=== PATIENT | female | born 1965 ===

== ENCOUNTER → 2016-10-02 | Outpatient (CLI) | payer BC, OTHER ==
[~2016-10-02] MED LIST: ADVIN25/60 INH; AMLO-114 PO; ATOR-22 PO; GLYB2.5T7 PO; HYDR-2977 PO; HYZ/10015 PO; LIVALO PO; LOSARTAN/HCTZ PO; METF-384 PO; MONT1TAB5 PO; NAPR1TAB9 PO; OLME40TA30 PO; RXC5 PO; TAMO20TA5 PO; VNTHFA/IN INH; [UNRECOGNIZED DRUG - OTHER] INH
== END | disposition home or self-care (01) ==
LOC: C.PATHSPEC 13:25
PROVIDERS: ATTEND Obstetrics & Gynecology
DX: N93.8 Other specified abnormal uterine and vaginal bleeding (principal)

== ENCOUNTER 2017-01-01 09:28 | Inpatient (IN) | payer BC, OTHER ==
[2016-12-08 10:32] VITALS: BMI 27.0
--- NOTE | 2016-12-08 11:07 | PAT Medication Instructions ---
Service Date Dec 08, 2016. Current Home Medication List Albuterol Hfa (Ventolin Hfa), 2-4 PUFFS INH Q4H PRN for RN Amlodipine (Norvasc), 10 MG PO QPM Atorvastatin (Lipitor), 20 MG PO HS Fluticasone Prop/Salmeterol (Advair Diskus 250/50 60 Dose), 1 PUFF INH BID Hydralazine HCl (Hydralazine HCl), 10 MG PO BID Metformin Hcl (Glucophage), 1,000 MG PO BID Montelukast Sodium (Montelukast Sodium), 1 TAB PO QPM Naproxen (Aleve), 220 MG PO PRN Tamoxifen Citrate (Nolvadex), 20 MG PO QAM [Losartan/Hctz], 1 TAB PO QAM Medication Instructions For Your Scheduled Surgery - Check with surgeon/prescribing physician for instructions: Naproxen (Aleve), 220 MG PO PRN Tamoxifen Citrate (Nolvadex), 20 MG PO QAM - Hold the following medications 48 hours prior to surgery: Metformin Hcl (Glucophage), 1,000 MG PO BID - Hold the following medications the morning of surgery: [Losartan/Hctz], 1 TAB PO QAM - Take the following medications the morning of surgery with a sip of water: Hydralazine HCl (Hydralazine HCl), 10 MG PO BID Fluticasone Prop/Salmeterol (Advair Diskus 250/50 60 Dose), 1 PUFF INH BID Albuterol Hfa (Ventolin Hfa), 2-4 PUFFS INH Q4H PRN for RN (if needed) - Take the following medications as scheduled the night before surgery: Montelukast Sodium (Montelukast Sodium), 1 TAB PO QPM Hydralazine HCl (Hydralazine HCl), 10 MG PO BID Fluticasone Prop/Salmeterol (Advair Diskus 250/50 60 Dose), 1 PUFF INH BID Atorvastatin (Lipitor), 20 MG PO HS Amlodipine (Norvasc), 10 MG PO QPM Albuterol Hfa (Ventolin Hfa), 2-4 PUFFS INH Q4H PRN for RN (if needed) If you have any questions please call us at [phone] or [phone] or [phone]
[2016-12-08 11:52] LABS: BASO % 0.6 %; BASO ABS # 0.06 K/uL (0-0.2); COMPLETE YES; EOS % 12.8 %; HEMATOCRIT 36.2 % (37-47); IG% 0.1 %; LYMPH % 43.2 %; LYMPH ABS # 4.02 K/uL (1.2-3.4); MEAN CELL VOLUME 75.3 fL (80-100); MEAN CORPUSCULAR HEMOGLOBIN 23.3 pg (25-34); MEAN CORPUSCULAR HGB CONC 30.9 g/dl (32-36); MEAN PLATELET VOLUME 9.8 fL (7.4-10.4); MONO % 5.7 %; NEUT % 37.6 %; PLATELET COUNT 395 K/uL (130-400); RED BLOOD COUNT 4.81 M/uL (4.2-5.4)
[2016-12-08 12:16] LABS: ESTIMATED AVERAGE GLUCOSE 169 mg/dl; HA1C FLAG Normal (Normal)
[2016-12-08 13:14] LABS: CALCIUM 8.9 mg/dl (8.5-10.1); CREATININE 0.57 mg/dl (0.60-1.20); POTASSIUM 3.3 mmol/L (3.5-5.1)
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
[~2017-01-01] VITALS: Ht 154.9 cm; Wt 66.5 kg
[2017-01-01] VITALS (8 sets, daily range): BP systolic 129–145; BP diastolic 75–86; PULSE 64–99; TEMP 36.8–37.1; O2SAT 96–99; Ht 154.9 cm; Wt 66.5 kg
[~2017-01-01 09:28] MED LIST changes: +CEFAZOLIN 2000 MG/60 ML D5W 50 ML IV SCH; -GLYB2.5T7 PO; -HYDR-2977 PO; +HYDR-4322 PO; -HYZ/10015 PO; +LACTATED RINGER'S 1000ML 1,000 ML IV SCH; -LIVALO PO; -OLME40TA30 PO; -RXC5 PO; -[UNRECOGNIZED DRUG - OTHER] INH
[2017-01-01] MEDS ORDERED: HYZ/10015 PO (09:49)
[2017-01-01] MEDS ORDERED: GLYCOPYRROLATE INJ 0.2 MG/ML VIAL ONE ×2 (10:05→12:45)
[2017-01-01] MEDS ORDERED: NEOSTIGMINE METHYLSULFATE 5 MG/5 ML SYR ONE (10:05)
[2017-01-01] MEDS ORDERED: MIDAZOLAM HCL 1 MG/ML 2ML VIAL ONE (10:05)
[2017-01-01] MEDS ORDERED: ONDANSETRON INJ 2 MG/ML 2 ML VIAL ONE ×2 (10:05→12:45)
[2017-01-01] MEDS ORDERED: ROCURONIUM BROMIDE 10 MG/ML 5 ML VIAL ONE ×2 (10:05→12:45)
[2017-01-01] MEDS ORDERED: LIDOCAINE HCL 2% 2 ML VIAL (20MG/ML) ONE (10:05)
[2017-01-01] MEDS ORDERED: FENTANYL CITRATE INJ 50 MCG/1 ML 2 ML VIAL ONE (10:05)
[2017-01-01] MEDS ORDERED: PROPOFOL IV EMULSION 10 MG/ML 20 ML VIAL IV ONE (10:05)
[2017-01-01] MEDS ORDERED: DEXAMETHASONE SOD INJ 4 MG/ML VIAL ONE (10:05)
[2017-01-01] MEDS ORDERED: NovoLIN-R INSULIN PER UNIT CHARGE ONE ×2 (10:26→15:02)
[2017-01-01] MEDS ORDERED: FLUMAZENIL 0.1 MG/1 ML 10 ML VIAL IV PRN (10:30)
[2017-01-01] MEDS ORDERED: INSULIN HUMAN REGULAR SC ONE (10:30)
[2017-01-01] MEDS ORDERED: HYDROmorphone INJ 2 MG/ML SYR/VIAL IV PRN (10:30)
[2017-01-01] MEDS ORDERED: NALOXONE HCL 0.4 MG/1 ML VIAL/CARP IV PRN ×2 (10:30→14:30)
[2017-01-01] MEDS ORDERED: ATROPINE SULFATE 0.1 MG/ML 5ML SYR IV PRN (10:30)
[2017-01-01] MEDS ORDERED: ONDANSETRON INJ 2 MG/ML 2 ML VIAL IV PRN ×2 (10:30→14:30)
[2017-01-01] MEDS ORDERED: MEPERIDINE HCL 25 MG/ML CARP IV PRN (10:30)
[2017-01-01] MEDS ORDERED: PHENYLEPHRINE 100MCG/ML 5ML SYR IV PRN (10:30)
[2017-01-01] MEDS ORDERED: LABETALOL HCL IV 5 MG/ML 20ML IV PRN (10:30)
[2017-01-01] MEDS ORDERED: EpHEDrine SULFATE INJ 50 MG/ML AMP IV PRN (10:30)
--- NOTE | 2017-01-01 10:36 | History & Physical Bridge Note ---
H&P Re-Evaluation Bridge Note: I have examined the patient, reviewed the History & Physical and in the interval since the performance of the History & Physical I have noted the following changes of clinical significance: The patient states she has some history of asthma and is on inhalers. However, she is non-compliant with regular use. Anesthesia has ordered a breathing treatment. Her fasting sugar is elevated and she is receiving SQ insulin under anesthesia's direction.
[2017-01-01] MEDS ORDERED: BUPIVACAINE 0.5 % 5 MG/1 ML MPF 30ML VIAL ONE (10:58)
[2017-01-01] MEDS ORDERED: ALBUT/IPRATROP 3MG/0.5MG NEB 3 ML VIAL INH SCH (11:15)
[2017-01-01] MEDS ORDERED: PHENYLEPHRINE 100MCG/ML 5ML SYR ONE (11:42)
[2017-01-01] MEDS ORDERED: HYDROmorphone INJ 2 MG/ML SYR/VIAL ONE (12:12)
[2017-01-01] MEDS ORDERED: PHENYLEPHRINE HCL INJ 10 MG/ML VIAL ONE (13:02)
[2017-01-01] MEDS ORDERED: ALBUTEROL HFA INHALER 8.5 GM INH ONE (14:11)
[2017-01-01] MEDS ORDERED: SODIUM CHLORIDE 0.9% 1000ML 1,000 ML IV SCH (14:18)
[2017-01-01] MEDS ORDERED: MEPERIDINE HCL 50 MG/ML CARP IV PRN (14:30)
[2017-01-01] MEDS ORDERED: ALBUTEROL HFA 8 GM INHALER INH PRN (14:30)
[2017-01-01] MEDS ORDERED: ACETAMINOPHEN IV 100 ML IV PRN (14:30)
--- NOTE | 2017-01-01 14:35 | [facility] Post Operative Brief Note ---
Immediate Operative Summary Operative Date Jan 01, 2017. Pre-Operative Diagnosis 1)Dysfunctional uterine bleeding, 2) dysmenorrhea. Post-Operative Diagnosis 1)Same 2) extensive pelvic adhesions, 3) extensive pelvic endometriosis. Procedure(s) Performed 1)Diagnostic laparoscopy, 2)total abdominal hysterectomy with bilateral salpingo-oophorectomy, 3)extensive lysis of adhesions, 4)post procedure cystoscopy, 5)general surgery consultation. Surgeon Dr. Daniels Vice President Of Academic Affairs Surgeon(s) Dr. Mckenna, Dr. Casillas from [phone]. Estimated Blood Loss 400 ml Findings Diagnostic L-scope showed extensive adhesion of adnexa into the cul de sac, obliterating the cul de sac. extensive adhesion of bowel to posterior uterus, Adnexa not mobile, case converted to open procedure. LEIGHTON/BSO with extensive adhesiolysis. Small tears to superficial bowel, general surgery consult, see Dr. Casillas note. Postprocedure cystoscopy showed bilateral ureteral jets\ Fluids (cc crystalloids) 1400 Specimens A: Uterus, cervix, right tube and ovary B: Left tube and ovary Drains Barrett to gravity Anesthesia Geberal Complication(s) None Disposition Recovery Room / PACU
[2017-01-01] MEDS ORDERED: NURSING VERBAL MED ORDER ONE ×2 (15:15→23:30)
[2017-01-01] MEDS: FENTANYL CITRATE INJ 50 MCG/1 ML 2 ML VIAL IV PRN ×2 (15:15→15:57)
[2017-01-01] MEDS: MoRPHine SULFATE 1 MG/ML 50 ML PCA CASS IV PRN ×3 (15:25→19:17)
--- NOTE | 2017-01-01 15:35 | OPERATIVE REPORT ---
DATE OF OPERATION: 01/01/2017 PREOPERATIVE DIAGNOSES: 1. Dysfunctional uterine bleeding. 2. Dysmenorrhea. POSTOPERATIVE DIAGNOSES: 1. Same. 2. Extensive pelvic adhesions. 3. Extensive pelvic endometriosis. PROCEDURE PERFORMED: 1. Diagnostic laparoscopy. 2. Total abdominal hysterectomy with bilateral salpingo-oophorectomy. 3. Extensive adhesiolysis. 4. Post-procedure cystoscopy. 5. General surgery consult. SURGEON: Dr. Nick Daniels. INSPECTOR RADAR AND ELECTRONICS: Dr. Jose Mckenna. ANESTHESIA: General. FINDINGS: Laparoscopic examination of the pelvis showed extensive adhesions of the adnexa to the posterior uterus. The adhesions appeared to be consistent with extensive endometriosis. The cul-de-sac was obliterated with adhesions from the sigmoid and small bowel to the posterior wall of the uterus, which could not be mobilized with blunt dissection. A diagnostic laparoscopy was converted to an open laparotomy and a total abdominal hysterectomy with bilateral salpingo-oophorectomy was performed. This necessitated extensive adhesiolysis of both the adnexa and the colon and small bowel in order to complete the procedure. INTRAOPERATIVE CONSULT: Dr. Casillas from general surgery to inspect bowel serosa integrity. PROCEDURE IN DETAIL: The patient was taken to the operating room and after general anesthesia, was placed in dorsal lithotomy position and draped and prepped in the usual fashion. Bladder was drained of any residual urine. Single tooth tenaculum was used to grasp the anterior lip of the cervix. The cervical os was dilated with Hagan dilators to a Hagan #17. A VCare uterine manipulator was inserted into the endometrial cavity and insufflated with air. The VCare was then stitched to the suture and put into place. Small subumbilical incision was made and the Veress needle was introduced into the pelvic cavity, which was then insufflated with 3 liters of CO2. Veress needle was removed and sharp trocar was used to introduce the laparoscope. A left paramedial and a left lateral port were placed. Description of the pelvis at this point was as above. Decision was made to abandon laparoscopy and proceed to an open procedure. Trocar and laparoscopes were removed. Incisions were closed. Deep stitches of 0 Vicryl on the fascia and the skin incision was closed with interrupted Monocryl suture. After positioning the patient for a laparotomy and a proper count, a Pfannenstiel type incision through previous surgical scar was made. Underlying subcutaneous tissue was dissected down to the ventral abdominal fascia, which was opened in a horizontal manner. Preperitoneal fascia was dissected away until the peritoneal cavity was opened in a vertical manner. The O'Mikhail-O'Alvarez retractor was placed into the incision. Bladder blade was placed. The intestines were packed into the upper abdomen. The cul-de-sac was obliterated by the adnexa and adhesions bilaterally. Blunt dissection freed the ovary on the left side from the posterior surface of the uterus. The left round ligament was then ligated, cut opening the anterior leaf of the broad ligament, and was taken down over the bladder. The left infundibulopelvic space was then developed until the ureter could be isolated along the medial reflection of the peritoneum. A vessel loop was placed atraumatically around the ureter to allow constant identification of the ureter. With the ureter in view, the infundibulopelvic ligament was isolated on the left side with sharp dissection. It was then cross clamped x2 and cut and a free tie suture ligature of 0 Vicryl was placed. The intestines to the anterior surface of the bladder were taken down with sharp dissection. Some superficial separation of the serosa occurred at this point. The bladder was bluntly and sharply taken down below the level of the cervix. The left uterine vessels were then skeletonized on the left side, cross clamped with Mike clamps, cut and ligated with 0 Vicryl suture. Dissection was again turned to the right hand side. Some blunt dissection trying to free the ovary from the posterior surface, but this was not successful. The right round ligament was cut, opened the anterior leaf of the broad ligament which was taken down to join the contralateral side. The right infundibulopelvic space was then entered until the ureter could be isolated on the medial reflection of the peritoneum. This allowed identification then of the infundibulopelvic ligament on the right hand side, which was cross clamped, cut and ligated with 0 Vicryl suture. Now that the vasculature had been controlled to the right adnexa. Aggressive dissection of the ovary off the posterior surface of the uterus occurred. This then allowed the uterine vessels to be skeletonized on the right hand side, allowing the uterine vessels to be clamped with Mike clamps, cut and ligated with 0 Vicryl suture. The bladder was bluntly and sharply again taken down below the level of the cervix. The cardinal uterosacral ligaments were cross clamped with Mike clamps, cut and ligated with 0 Vicryl suture. An initial supracervical hysterectomy was performed at this point to allow better visualization of the cervical stump. The curved Mike Janis clamps were placed across the vagina below the level of the cervix meeting in the midline. This allowed excision of the cervix from the vagina. The vagina was then cross closed with a running 0 Vicryl suture in a whipstitched fashion. The pelvis was thoroughly irrigated with 2000 mL of warm saline. All pedicles were inspected for hemostasis, which was present. There were raw surfaces from the previous blunt and sharp dissection from the adhesions. As a result, Tisseel was applied over all of the pedicles and the raw surface in the cul-de-sac. Good hemostasis was present. General surgery consult with opinions by Dr. Casillas, please see his notes for detail. The O'Mikhail-O'Alvarez retractor and the packing was removed from the abdomen. Sponge and needle count was correct. The rectus muscle was plicated in the midline with a running 2-0 Vicryl stitch. The fascia was closed laterally to the midline with a #1 PDS suture. Subcutaneous tissue was irrigated with warm saline and the skin incision was closed with a 4-0 Monocryl subcuticular stitch. The Barrett catheter was then removed from the bladder and cystoscopy was performed. Both ureteral orifices were visualized with ureteral jets placed and seen consistent with ureteral patency. A new Barrett catheter was inserted. The patient was taken out of dorsal lithotomy to recovery room in satisfactory condition. I attest to the content of the Intraoperative Record and any orders documented therein. Any exceptions are noted below. MTDD
[2017-01-01] MEDS ORDERED: INCREMENTAL PCA TITRATION SCH (16:00)
[2017-01-01] MEDS ORDERED: LOCK-OUT PCA TITRATION SCH (16:00)
--- NOTE | 2017-01-01 16:16 | Anesthesiology Progress Note ---
Anesthesia Post Op Note Date & Time Jan 01, 2017 at 16:14 Vital Signs Pain Intensity: 4 Vital Signs Past 12 Hours Date Time Temp Pulse Resp B/P (MAP) Pulse Ox O2 Delivery O2 Flow Rate FiO2 01/01/17 15:55 83 22 133/73 97 Nasal Cannula 2 01/01/17 15:45 82 22 134/74 97 Nasal Cannula 2 01/01/17 15:35 36.6 81 20 129/72 97 Nasal Cannula 2 01/01/17 15:25 84 22 140/81 99 Nasal Cannula 2 01/01/17 15:15 78 22 134/78 98 Mask 10 01/01/17 15:05 76 24 129/75 98 Mask 10 01/01/17 14:55 76 20 119/76 97 Mask 10 01/01/17 14:47 36.3 73 20 118/72 100 Mask 10 01/01/17 10:29 64 16 99 Room Air 01/01/17 09:52 36.9 87 18 137/75 (95) 97 Room Air Notes Mental Status: alert / awake / arousable, participated in evaluation Pt Amnestic to Procedure: Yes Nausea / Vomiting: adequately controlled Pain: adequately controlled Airway Patency, RR, SpO2: stable & adequate BP & HR: stable & adequate Hydration State: stable & adequate Anesthetic Complications: no major complications apparent The patient had to be converted to an open procedure. She was placed on a morphine CAR MECHANIC for postop pain control. She was given 2 unit insulin preoperatively and 2 units postoperatively for blood glucose control. I spoke to Dr. Alan who will follow her on the floor.
[2017-01-01] MEDS ORDERED: METHYLENE BLUE 0.5% 10 ML VIAL ONE (16:31)
[2017-01-01] MEDS ORDERED: HydrALAZINE HCL 20 MG/ML VIAL IV. PRN (18:30)
[2017-01-01] MEDS ORDERED: ALBUT/IPRATROP 3MG/0.5MG NEB 3 ML VIAL INH PRN (18:30)
[2017-01-01] MEDS ORDERED: GLUCOSE 10 TABS/TUBE PO PRN (18:45)
[2017-01-01] MEDS ORDERED: DEXTROSE 50% 50 ML SYR IV PRN (18:45)
[2017-01-01] MEDS ORDERED: GLUCOSE 40% GEL 15 GM TUBE PO PRN (18:45)
[2017-01-01] MEDS ORDERED: GLUCAGON FOR INJ 1 MG VIAL SQ PRN (18:45)
--- NOTE | 2017-01-01 19:03 | Medical Consult ---
Consultation Date of Consultation: Jan 01, 2017. Attending Physician: Nick Daniels M.D. Reason for Consultation: Medical management History of Present Illness This patient is a 51-year-old female that underwent a hysterectomy today by Dr. Daniels. We were asked to see the patient for medical management. The history and physical are somewhat limited as the patient is very drowsy. She reportedly underwent a laparoscopic hysterectomy that had to be converted to an open procedure secondary to extensive adhesions and endometriosis. She did undergo a complete hysterectomy salpingo-oophorectomy. She currently denies any pain. She denies any chest pain or difficulty breathing. She denies any nausea. The patient does have a history of asthma and reportedly needed her inhaler postoperatively. She denies any recent illnesses. Past Medical/Surgical History Hypertension Asthma Hyperlipidemia Diabetes Family History Noncontributory Social History Smoking Status: Never Smoker Smokeless Tobacco Use: No Alcohol Use: none Drug Use: none Marital Status: Housing Status: lives with family Occupation Status: employed Allergies Coded Allergies: Aspirin (Verified Allergy, Unknown, WHEEZING-WORSENS ASTHMA, 01/02/17) Dust (Verified Allergy, Unknown, ASTHMA SYMTOMS, 01/02/17) Home Medications I personally reviewed the patient's home medications. Please see the medical reconciliation. Current Inpatient Medications Current Inpatient Medications Medications (Trade) Dose Ordered Sig/Ellen Route Start Time Stop Time Status Last Admin Dose Admin Meperidine HCl (Demerol Inj) 50 mg Q4H PRN IV 01/01/17 14:30 01/15/17 14:29 Meperidine HCl (Demerol Inj) 75 mg Q4H PRN IV 01/01/17 14:30 01/15/17 14:29 Oxycodone/ Acetaminophen (Percocet 5-325mg Tab) 1 tab for pain scale 1-5 2 t... Q4H PRN PO 01/01/17 14:30 01/15/17 14:29 Ondansetron HCl (Zofran Inj) 4 mg Q4H PRN IV 01/01/17 14:30 01/31/17 14:29 Magnesium Hydroxide (Milk Of Magnesia Susp) 30 ml HS PO 01/02/17 21:00 02/01/17 20:59 Lactated Ringer's 1,000 ml @ 125 mls/hr Q8H IV 01/01/17 14:18 01/31/17 14:17 Senna (Senokot Tab) 17.2 mg HS PO 01/02/17 21:00 02/01/17 20:59 Naloxone HCl (Narcan Inj) 0.1 mg Q5M PRN IV 01/01/17 14:30 01/31/17 14:29 Morphine Sulfate (moRPHine SULFATE DIRECTOR MISSION) 50 mg PRN PRN IV 01/01/17 14:30 01/15/17 14:29 01/01/17 16:51 50 MG Miscellaneous Information (Incremental DIRECTOR MISSION Titration) 1 ea QS N/A 01/01/17 16:00 01/31/17 15:59 Miscellaneous Information (Lock-Out DIRECTOR MISSION Titration) 1 ea QS N/A 01/01/17 16:00 01/15/17 15:59 Sodium Chloride 1,000 ml @ 15 mls/hr Q24H IV 01/01/17 14:18 01/31/17 14:17 Acetaminophen 100 ml @ 400 mls/hr Q8H PRN IV 01/01/17 14:30 01/31/17 14:29 Albuterol (Ventolin Hfa Inhaler) as written Q4H PRN INH 01/01/17 14:30 01/31/17 14:29 Amlodipine Besylate (Norvasc Tab) 10 mg QPM PO 01/01/17 21:00 01/31/17 20:59 Atorvastatin Calcium (Lipitor Tab) 20 mg HS PO 01/01/17 21:00 01/31/17 20:59 Salmeterol Xinafoate/ Fluticasone (Advair Diskus 250/50 Inh) 1 puff BID INH 01/01/17 21:00 01/31/17 20:59 Hydralazine HCl (Apresoline Tab) 10 mg BID PO 01/01/17 21:00 01/31/17 20:59 Montelukast Sodium (Singulair Tab) 10 mg QPM PO 01/01/17 21:00 01/31/17 20:59 Tamoxifen Citrate (Nolvadex Tab) 20 mg QAM PO 01/02/17 09:00 02/01/17 08:59 Insulin Aspart (novoLOG ASPART) SLIDING SCALE G... ACHS SC 01/01/17 22:00 01/31/17 21:59 Hydralazine HCl (HydrALAZINE INJ) 10 mg Q6H PRN IV. 01/01/17 18:30 01/31/17 18:29 Albuterol/ Ipratropium (Duoneb) 3 ml Q4 PRN INH 01/01/17 18:30 01/31/17 18:29 Glucose (Glucose 40% Gel) 15-30 GRAMS 15 GRAMS... UD PRN PO 01/01/17 18:45 01/31/17 18:44 Glucose (Glucose Chew Tab) 4-8 Tablets 4 Tabl... UD PRN PO 01/01/17 18:45 01/31/17 18:44 Dextrose (Dextrose 50% 50ML Syringe) 25-50ML OF 50% DW IV FOR... UD PRN IV 01/01/17 18:45 01/31/17 18:44 Glucagon (Glucagon Inj) 1 mg UD PRN SQ 01/01/17 18:45 01/31/17 18:44 Review of Systems 10 system review performed and negative unless noted in HPI or below Physical Exam Date Time Temp Pulse Resp B/P (MAP) Pulse Ox O2 Delivery O2 Flow Rate FiO2 01/01/17 17:50 36.8 94 18 133/82 (99) 96 Nasal Cannula 1.0 01/01/17 17:20 37.0 90 16 131/83 (99) 98 Nasal Cannula 1.0 01/01/17 16:50 37.1 88 16 129/84 (99) 98 Nasal Cannula 2.0 01/01/17 16:50 98 Nasal Cannula 2.0 01/01/17 16:35 87 22 124/74 97 Nasal Cannula 2 01/01/17 16:25 86 22 129/76 97 Nasal Cannula 2 01/01/17 16:15 37.2 84 20 133/73 96 Nasal Cannula 2 01/01/17 16:05 85 22 127/76 97 Nasal Cannula 2 01/01/17 15:55 83 22 133/73 97 Nasal Cannula 2 01/01/17 15:45 82 22 134/74 97 Nasal Cannula 2 01/01/17 15:35 36.6 81 20 129/72 97 Nasal Cannula 2 01/01/17 15:25 84 22 140/81 99 Nasal Cannula 2 01/01/17 15:15 78 22 134/78 98 Mask 10 01/01/17 15:05 76 24 129/75 98 Mask 10 01/01/17 14:55 76 20 119/76 97 Mask 10 01/01/17 14:47 36.3 73 20 118/72 100 Mask 10 01/01/17 10:29 64 16 99 Room Air 01/01/17 09:52 36.9 87 18 137/75 (95) 97 Room Air General Appearance: + pertinent finding (drowsy) Head: normocephalic Eyes: EOMI Neck: no JVD Respiratory/Chest: lungs clear Cardiovascular: regular rate, rhythm Abdomen/GI: soft, + pertinent finding (bowel sounds hypoactive) Extremities/Musculoskelatal: no calf tenderness, no pedal edema Neurologic/Psych: oriented x 3 (answering questions appropriately.) Laboratory Results Last 24 Hours Test 01/01/17 09:57 01/01/17 12:24 01/01/17 14:55 01/01/17 15:35 Bedside Glucose 185 mg/dl 175 mg/dl 216 mg/dl 199 mg/dl Assessment & Plan This patient is a 51-year-old female that is status post open hysterectomy and lysis of adhesions for a diagnosis of extensive endometriosis -pain management, DVT prophylaxis, PT per primary team Asthma -Continue Advair 250/50 BID -Duo nebs every 4 hours as needed for wheezing or shortness of breath added Hypertension -Continue Norvasc 10 mg daily -Hold Hyzaar for 1 day. Check PRP in the morning. If blood pressure and renal function is stable, may resume in the morning -Hydralazine 10 mg IV q 6 hr PRN Hyperlipidemia -Continue Lipitor 20 mg daily Diabetes-expect blood sugars to be increased after surgery -I discontinued the patient's home metformin 1000 mg BID -Insulin sliding scale added Thank you for this consultation. We will continue to follow. Attending Addendum: The patient is awake, well-developed and adequately nourished, alert and oriented 3, normocephalic and atraumatic, lying in bed and in no acute distress. HEENT--PERRL, EOMI, mucous membranes and oropharynx dry. Neck--supple, no JVD or bruits, thyroid normal, trachea midline, no adenopathy. Heart--normal S1 and S2, no extra beats, no murmurs, rubs or gallops. Lungs--clear bilaterally with good air movement, no respiratory distress, no accessory muscle use. Abdomen--normal bowel sounds and soft, nontender and nondistended, no hernias or masses, no organomegaly. Extremities--no cyanosis, clubbing or edema. There are good distal pulses b/l. Dermatologic--normal skin turgor, normal color, warm and dry, no abnormal lymph nodes, no rash. Neurologic--cranial nerves II through XII grossly intact, motor and sensory examination normal. Rheumatologic--normal range of motion, nontender, muscles and joints. Psychiatric--normal affect. Assessment and Plan: The patient was seen status post open hysterectomy and lysis of adhesions for extensive endometriosis--medically stable. Asthma-continue Advair 250/50 one inhalation twice a day. Add Duonebs every 4 hours while awake and every 2 hours when necessary. Every 4 hours when necessary for shortness of breath and/or wheezing. Hypertension--continue Norvasc 10 mg by mouth daily. Hold Hyzaar today, And resume tomorrow morning if PRP stable. Place on hydralazine 10 mg IV every 6 hours when necessary systolic blood pressure greater than 150. Hyperlipidemia--continue Lipitor 20 mg by mouth daily. Diabetes mellitus--hold metformin 1000 mg by mouth twice a day. Place on Accu- Cheks before meals and at bedtime with NovoLog coverage per scale.
[2017-01-01] MEDS: LACTATED RINGER'S 1000ML 1,000 ML IV SCH (20:41)
[2017-01-01] MEDS ORDERED: MONTELUKAST SOD 10 MG TAB PO SCH (21:00)
[2017-01-01] MEDS ORDERED: METFORMIN HCL 500 MG TAB PO SCH (21:00)
[2017-01-01] MEDS: HydrALAZINE 10 MG TAB PO SCH (21:20)
[2017-01-01] MEDS: ATORVASTATIN 20 MG TAB PO SCH (21:20)
[2017-01-01] MEDS: FLUTICASONE/SALMETEROL 250/50 (ADVAIR) 14 PUFF/1 INHALER INH SCH (21:20)
[2017-01-01] MEDS: AMLODIPINE BESYLATE 5 MG TAB PO SCH (21:21)
[2017-01-01] MEDS: INSULIN ASPART 100 UNITS/ML 3 ML PEN SC SCH (21:23)
[2017-01-01] MEDS: DiphenhydrAMINE HCL 50 MG/ML VIAL IV PRN (23:49)
[2017-01-02] VITALS (12 sets, daily range): BP systolic 121–151; BP diastolic 71–91; PULSE 72–100; TEMP 36.9–37.7; O2SAT 84–98
[2017-01-02] MEDS: LACTATED RINGER'S 1000ML 1,000 ML IV SCH ×2 (04:26→12:55)
[2017-01-02] MEDS: MoRPHine SULFATE 1 MG/ML 50 ML PCA CASS IV PRN ×2 (04:39→07:11)
[2017-01-02] MEDS: DiphenhydrAMINE HCL 50 MG/ML VIAL IV PRN (05:33)
[2017-01-02 06:57] LABS: BASO % 0.1 %; BASO ABS # 0.01 K/uL (0-0.2); EOS % 0.2 %; HEMATOCRIT 28.8 % (37-47); IG% 0.3 %; LYMPH % 19.1 %; MEAN CELL VOLUME 74.4 fL (80-100); MEAN CORPUSCULAR HEMOGLOBIN 22.5 pg (25-34); MEAN CORPUSCULAR HGB CONC 30.2 g/dl (32-36); MONO % 12.2 %; NEUT % 68.1 %; PLATELET COUNT 324 K/uL (130-400); RED BLOOD COUNT 3.87 M/uL (4.2-5.4); WHITE BLOOD COUNT 10.46 K/uL (4.8-10.8)
[2017-01-02 07:27] LABS: COMPLETE YES; MICROCYTOSIS PRESENT
[2017-01-02 07:33] LABS: BUN/CREATININE RATIO 15.4 (10-20); CALCIUM 8.1 mg/dl (8.5-10.1); CREATININE 0.65 mg/dl (0.60-1.20); POTASSIUM 3.7 mmol/L (3.5-5.1)
--- NOTE | 2017-01-02 07:36 | OB/GYN Progress Note ---
CONSTRUCTION CREW MEMBER Progress Note Date of Service Jan 02, 2017. Subjective conversation w/ patient, physical exam Voiding: hurd catheter in place Objective Vital Signs Date Time Temp Pulse Resp B/P (MAP) Pulse Ox O2 Delivery O2 Flow Rate FiO2 01/02/17 03:40 37.1 89 16 142/86 (104) 95 Nasal Cannula 1.0 Humidified Oxygen 01/02/17 00:00 98 Nasal Cannula 1.0 Humidified Oxygen 01/02/17 00:00 36.9 89 18 144/87 (106) 98 Nasal Cannula 1.0 Humidified Oxygen 01/01/17 21:19 88 20 145/86 (105) 98 Nasal Cannula 1.0 01/01/17 19:50 37.0 99 16 138/85 (102) 96 Nasal Cannula 1.0 01/01/17 18:45 36.8 90 16 131/80 (97) 96 Nasal Cannula 1.0 01/01/17 17:50 36.8 94 18 133/82 (99) 96 Nasal Cannula 1.0 01/01/17 17:20 37.0 90 16 131/83 (99) 98 Nasal Cannula 1.0 01/01/17 16:50 37.1 88 16 129/84 (99) 98 Nasal Cannula 2.0 01/01/17 16:50 98 Nasal Cannula 2.0 01/01/17 16:35 87 22 124/74 97 Nasal Cannula 2 01/01/17 16:25 86 22 129/76 97 Nasal Cannula 2 01/01/17 16:15 37.2 84 20 133/73 96 Nasal Cannula 2 01/01/17 16:05 85 22 127/76 97 Nasal Cannula 2 01/01/17 15:55 83 22 133/73 97 Nasal Cannula 2 01/01/17 15:45 82 22 134/74 97 Nasal Cannula 2 01/01/17 15:35 36.6 81 20 129/72 97 Nasal Cannula 2 01/01/17 15:25 84 22 140/81 99 Nasal Cannula 2 01/01/17 15:15 78 22 134/78 98 Mask 10 01/01/17 15:05 76 24 129/75 98 Mask 10 01/01/17 14:55 76 20 119/76 97 Mask 10 01/01/17 14:47 36.3 73 20 118/72 100 Mask 10 01/01/17 10:29 64 16 99 Room Air 01/01/17 09:52 36.9 87 18 137/75 (95) 97 Room Air Physical Exam General Appearance: other (sleepy) Respiratory/Chest: + wheezing Cardiovascular: regular rate, rhythm Abdomen: + abnormal bowel sounds (dimished) Incision Description: Clean, Dry & Intact (dressing removed) Extremities: no calf tenderness Laboratory Results Last 24 Hours Test 01/01/17 09:57 01/01/17 12:24 01/01/17 14:55 01/01/17 15:35 Bedside Glucose 185 mg/dl 175 mg/dl 216 mg/dl 199 mg/dl Test 01/01/17 21:13 01/02/17 06:40 Bedside Glucose 214 mg/dl White Blood Count 10.46 K/uL Red Blood Count 3.87 M/uL Hemoglobin 8.7 g/dL Hematocrit 28.8 % Mean Corpuscular Volume 74.4 fL Mean Corpuscular Hemoglobin 22.5 pg Mean Corpuscular Hemoglobin Concent 30.2 g/dl Platelet Count 324 K/uL Mean Platelet Volume 9.0 fL Neutrophils (%) (Auto) 68.1 % Lymphocytes (%) (Auto) 19.1 % Monocytes (%) (Auto) 12.2 % Eosinophils (%) (Auto) 0.2 % Basophils (%) (Auto) 0.1 % Neutrophils # (Auto) 7.12 K/uL Lymphocytes # (Auto) 2.00 K/uL Monocytes # (Auto) 1.28 K/uL Eosinophils # (Auto) 0.02 K/uL Basophils # (Auto) 0.01 K/uL RDW Standard Deviation 41.2 fL RDW Coefficient of Variation 15.3 % Immature Granulocyte % (Auto) 0.3 % Immature Granulocyte # (Auto) 0.03 K/uL Microcytosis PRESENT Assessment and Plan Post-Op Day Number: 1 Continue Routine Care: - discussed surgery and finding with patient - will d/c ASSURANCE SPECIALIST and switch to other pain control - goal of ambulation today tid - sugar/asthma management per medicine - will go slow with po intake because of the extensive adhesions - drop H/H consistent with the surgery - no NSAID's because of the asthma
[2017-01-02] MEDS: INSULIN ASPART 100 UNITS/ML 3 ML PEN SC SCH ×4 (07:58→22:06)
[2017-01-02] MEDS: FLUTICASONE/SALMETEROL 250/50 (ADVAIR) 14 PUFF/1 INHALER INH SCH ×2 (08:33→21:01)
[2017-01-02] MEDS: HydrALAZINE 10 MG TAB PO SCH ×2 (08:33→21:02)
[2017-01-02] MEDS: TAMOXIFEN CITRATE 10 MG TAB PO SCH (08:35)
--- NOTE | 2017-01-02 08:44 | Anesthesiology Progress Note ---
Anesthesia Post Op Note Date & Time Jan 02, 2017 at 08:43 Vital Signs Pain Intensity: 6.0 Vital Signs Past 12 Hours Date Time Temp Pulse Resp B/P (MAP) Pulse Ox O2 Delivery O2 Flow Rate FiO2 01/02/17 03:40 37.1 89 16 142/86 (104) 95 Nasal Cannula 1.0 Humidified Oxygen 01/02/17 00:00 98 Nasal Cannula 1.0 Humidified Oxygen 01/02/17 00:00 36.9 89 18 144/87 (106) 98 Nasal Cannula 1.0 Humidified Oxygen 01/01/17 21:19 88 20 145/86 (105) 98 Nasal Cannula 1.0 Notes Mental Status: alert / awake / arousable, participated in evaluation Pt Amnestic to Procedure: Yes Nausea / Vomiting: adequately controlled Pain: adequately controlled Airway Patency, RR, SpO2: stable & adequate BP & HR: stable & adequate Hydration State: stable & adequate Anesthetic Complications: no major complications apparent
[2017-01-02] MEDS ORDERED: LOSARTAN/HCTZ 50-12.5 EA TAB PO SCH (09:00)
--- NOTE | 2017-01-02 09:00 | Progress Note ---
Subjective Date of Service: Jan 02, 2017. Subjective Pt evaluation today including: conversation w/ patient, physical exam, chart review, lab review, review of studies, conversation w/ medical consultant, review of inpatient medication list Patient is fairly controlled, will be off morphine BUNGHOLE BORER pump, has started some clear liquid diet, no other complaint Review of Systems Constitutional: No fever, No chills, No sweats, No weight loss, No weakness, No fatigue, No problem reported Eyes: No worsening of vision, No eye pain, No redness, No discharge, No diplopia ENT: No hearing loss, No unusual epistaxis, No nasal symptoms, No sore throat, No tinnitus, No dental problems, No trouble swallowing Respiratory: No cough, No sputum, No wheezing, No shortness of breath, No dyspnea on exertion, No dyspnea at rest, No hemoptysis Cardiac: No chest pain, No orthopnea, No PND, No edema, No claudication, No palpitations Abdomen: No pain, No nausea, No vomiting, No diarrhea, No constipation Musculoskeletal: No joint pain, No muscle pain, No swelling, No calf pain Female : No dysuria, No urinary frequency, No hematuria, No incontinence, No abnormal vaginal bleeding, No vaginal discharge Neurologic: No memory loss, No paralysis, No weakness, No numbness/tingling, No vertigo, No balance problems Psychiatric: No depression symptoms, No anhedonism, No anxiety, No insomnia, No substance abuse Heme: No abnormal bleeding/bruising, No clotting problems, No swollen lymph nodes, No night sweats Endo: No fatigue, No excessive thirst, No excessive urination Skin: No rash, No itch, No new/changing skin lesions, No color change, No bleeding Objective Vital Signs Date Time Temp Pulse Resp B/P (MAP) Pulse Ox O2 Delivery O2 Flow Rate FiO2 01/02/17 03:40 37.1 89 16 142/86 (104) 95 Nasal Cannula 1.0 Humidified Oxygen 01/02/17 00:00 98 Nasal Cannula 1.0 Humidified Oxygen 01/02/17 00:00 36.9 89 18 144/87 (106) 98 Nasal Cannula 1.0 Humidified Oxygen 01/01/17 21:19 88 20 145/86 (105) 98 Nasal Cannula 1.0 01/01/17 19:50 37.0 99 16 138/85 (102) 96 Nasal Cannula 1.0 01/01/17 18:45 36.8 90 16 131/80 (97) 96 Nasal Cannula 1.0 01/01/17 17:50 36.8 94 18 133/82 (99) 96 Nasal Cannula 1.0 01/01/17 17:20 37.0 90 16 131/83 (99) 98 Nasal Cannula 1.0 01/01/17 16:50 37.1 88 16 129/84 (99) 98 Nasal Cannula 2.0 01/01/17 16:50 98 Nasal Cannula 2.0 01/01/17 16:35 87 22 124/74 97 Nasal Cannula 2 01/01/17 16:25 86 22 129/76 97 Nasal Cannula 2 01/01/17 16:15 37.2 84 20 133/73 96 Nasal Cannula 2 01/01/17 16:05 85 22 127/76 97 Nasal Cannula 2 01/01/17 15:55 83 22 133/73 97 Nasal Cannula 2 01/01/17 15:45 82 22 134/74 97 Nasal Cannula 2 01/01/17 15:35 36.6 81 20 129/72 97 Nasal Cannula 2 01/01/17 15:25 84 22 140/81 99 Nasal Cannula 2 01/01/17 15:15 78 22 134/78 98 Mask 10 01/01/17 15:05 76 24 129/75 98 Mask 10 01/01/17 14:55 76 20 119/76 97 Mask 10 01/01/17 14:47 36.3 73 20 118/72 100 Mask 10 01/01/17 10:29 64 16 99 Room Air 01/01/17 09:52 36.9 87 18 137/75 (95) 97 Room Air Physical Exam General Appearance: WD/WN, no apparent distress Eyes: normal inspection, PERRL, EOMI, sclerae normal ENT: normal ENT inspection, hearing grossly normal, pharynx normal Neck: supple, no adenopathy, thyroid normal, no JVD, no carotid bruits, trachea midline Respiratory/Chest: chest non-tender, lungs clear, normal breath sounds, no respiratory distress, no accessory muscle use Cardiovascular: regular rate, rhythm, no edema, no gallop, no JVD, no murmur Abdomen: normal bowel sounds, soft, no organomegaly, no pulsatile mass, + pertinent finding (lower abdomen incision mild tender) Extremities: normal range of motion, non-tender, normal inspection, no pedal edema, no calf tenderness, normal capillary refill, pelvis stable Neurologic/Psychiatric: web content specialist II-XII nml as tested, no motor/sensory deficits, alert, normal mood/affect, oriented x 3 Skin: normal color, warm/dry, no rash Lymphatic: no adenopathy Laboratory Results Last 24 Hours Test 01/01/17 09:57 01/01/17 12:24 01/01/17 14:55 01/01/17 15:35 Bedside Glucose 185 mg/dl 175 mg/dl 216 mg/dl 199 mg/dl Test 01/01/17 21:13 01/02/17 06:40 01/02/17 07:50 Bedside Glucose 214 mg/dl 164 mg/dl White Blood Count 10.46 K/uL Red Blood Count 3.87 M/uL Hemoglobin 8.7 g/dL Hematocrit 28.8 % Mean Corpuscular Volume 74.4 fL Mean Corpuscular Hemoglobin 22.5 pg Mean Corpuscular Hemoglobin Concent 30.2 g/dl Platelet Count 324 K/uL Mean Platelet Volume 9.0 fL Neutrophils (%) (Auto) 68.1 % Lymphocytes (%) (Auto) 19.1 % Monocytes (%) (Auto) 12.2 % Eosinophils (%) (Auto) 0.2 % Basophils (%) (Auto) 0.1 % Neutrophils # (Auto) 7.12 K/uL Lymphocytes # (Auto) 2.00 K/uL Monocytes # (Auto) 1.28 K/uL Eosinophils # (Auto) 0.02 K/uL Basophils # (Auto) 0.01 K/uL RDW Standard Deviation 41.2 fL RDW Coefficient of Variation 15.3 % Immature Granulocyte % (Auto) 0.3 % Immature Granulocyte # (Auto) 0.03 K/uL Microcytosis PRESENT Sodium Level 141 mmol/L Potassium Level 3.7 mmol/L Chloride Level 105 mmol/L Carbon Dioxide Level 31 mmol/L Anion Gap 5.0 mmol/L Blood Urea Nitrogen 10 mg/dl Creatinine 0.65 mg/dl Est Creatinine Clear Calc Drug Dose 90.3 ml/min Estimated GFR () 120.0 Estimated GFR (Non- 103.5 BUN/Creatinine Ratio 15.4 Random Glucose 164 mg/dl Calcium Level 8.1 mg/dl Assessment and Plan 51-year-old female that is status post open hysterectomy and lysis of adhesions for a diagnosis of extensive endometriosis -pain management, DVT prophylaxis, PT per primary team Asthma, stable -Continue Advair 250/50 BID -Duo nebs every 4 hours as needed for wheezing or shortness of breath added Hypertension, was on for blood pressure medicine at home, currently blood pressure in reasonable level, -Continue Norvasc 10 mg daily -Continue losartan HCTZ and a dose of 25/ 100, patient will verify the dose was family - Restart home dose of hydralazine Hyperlipidemia -Continue Lipitor 20 mg daily Diabetes-expect blood sugars to be increased after surgery -I discontinued the patient's home metformin 1000 mg BID continue Acute blood loss anemia, hemoglobin drop, likely from surgery blood lost and delusional, tomorrow morning that was ordered Discussed with nurse and patient Continued [facility] stay due to: multiple IV medications needed Discharge planning: home
[2017-01-02] MEDS: ACETAMINOPHEN IV 100 ML IV PRN ×2 (09:37→17:25)
[2017-01-02] MEDS: LOSARTAN/HCTZ 50-12.5 EA TAB PO SCH (12:00)
[2017-01-02] MEDS: MONTELUKAST SOD 10 MG TAB PO SCH (12:37)
[2017-01-02] MEDS: OXYCODONE/ACETAMINOPHEN 5-325 TAB PO PRN (14:28)
[2017-01-02] MEDS: MEPERIDINE HCL 50 MG/ML CARP IV PRN (21:00)
[2017-01-02] MEDS: AMLODIPINE BESYLATE 5 MG TAB PO SCH (21:02)
[2017-01-02] MEDS: ATORVASTATIN 20 MG TAB PO SCH (21:02)
[2017-01-02] MEDS: SENNA 8.6 MG TAB PO SCH (21:04)
[2017-01-02] MEDS: MAGNESIUM HYDROXIDE SUSP 30 ML UDC PO SCH (21:25)
[2017-01-03] VITALS (10 sets, daily range): BP systolic 112–144; BP diastolic 71–87; PULSE 85–104; TEMP 36.7–37.6; O2SAT 89–95
[2017-01-03] MEDS: OXYCODONE HCL IR 5 MG TAB (IMMEDIATE RELEASE) PO PRN ×5 (00:27→21:26)
[2017-01-03] MEDS: MEPERIDINE HCL 50 MG/ML CARP IV PRN (02:13)
[2017-01-03 07:19] LABS: BUN/CREATININE RATIO 11.8 (10-20); CALCIUM 8.1 mg/dl (8.5-10.1); CREATININE 0.56 mg/dl (0.60-1.20); POTASSIUM 3.4 mmol/L (3.5-5.1)
[2017-01-03 07:44] LABS: HEMATOCRIT 27.1 % (37-47); MEAN CELL VOLUME 75.1 fL (80-100); MEAN CORPUSCULAR HEMOGLOBIN 22.7 pg (25-34); MEAN CORPUSCULAR HGB CONC 30.3 g/dl (32-36); PLATELET COUNT 296 K/uL (130-400); RED BLOOD COUNT 3.61 M/uL (4.2-5.4)
[2017-01-03 07:51] LABS: BASO % 0.3 %; BASO ABS # 0.03 K/uL (0-0.2); COMPLETE YES; EOS % 1.6 %; IG% 0.2 %; LYMPH % 19.5 %; LYMPH ABS # 1.89 K/uL (1.2-3.4); MICROCYTOSIS PRESENT; MONO % 8.6 %; NEUT % 69.8 %; PLT ESTIMATE NORMAL
[2017-01-03] MEDS: INSULIN ASPART 100 UNITS/ML 3 ML PEN SC SCH ×4 (08:56→22:21)
[2017-01-03] MEDS: MONTELUKAST SOD 10 MG TAB PO SCH (08:57)
[2017-01-03] MEDS: TAMOXIFEN CITRATE 10 MG TAB PO SCH (08:57)
[2017-01-03] MEDS: LOSARTAN/HCTZ 50-12.5 EA TAB PO SCH (08:58)
[2017-01-03] MEDS: HydrALAZINE 10 MG TAB PO SCH ×2 (08:58→21:25)
[2017-01-03] MEDS: FLUTICASONE/SALMETEROL 250/50 (ADVAIR) 14 PUFF/1 INHALER INH SCH ×2 (08:58→21:24)
--- NOTE | 2017-01-03 09:06 | OB/GYN Progress Note ---
IMPLEMENTATION ARCHITECT Progress Note Date of Service Jan 03, 2017. Subjective conversation w/ patient, physical exam Ambulation: limited ambulation Voiding: no voiding problems Diet Tolerance: Clear Liquids Objective Vital Signs Date Time Temp Pulse Resp B/P (MAP) Pulse Ox O2 Delivery O2 Flow Rate FiO2 01/03/17 08:00 37.6 98 20 124/74 (91) 94 Nasal Cannula 1.0 01/03/17 08:00 94 Nasal Cannula 1.0 01/03/17 04:35 95 Nasal Cannula 2.0 Humidified Oxygen 01/03/17 04:35 37.4 95 22 134/75 (94) 95 Nasal Cannula 2.0 Humidified Oxygen 01/03/17 00:30 92 Nasal Cannula 2.0 Humidified Oxygen 01/03/17 00:30 36.9 98 20 144/79 (100) 92 Nasal Cannula 2.0 Humidified Oxygen 01/02/17 20:20 37.1 100 20 151/91 (111) 90 Room Air 01/02/17 16:00 84 Room Air 01/02/17 16:00 Nasal Cannula 2.0 01/02/17 16:00 37.7 98 20 123/75 (91) 93 Nasal Cannula 2.0 01/02/17 14:16 94 Nasal Cannula 1.0 01/02/17 14:16 94 Nasal Cannula 1.0 01/02/17 14:15 89 Room Air 01/02/17 14:15 89 Room Air 01/02/17 11:50 95 Nasal Cannula 1.0 01/02/17 11:45 88 Room Air 01/02/17 11:16 93 Nasal Cannula 1.0 01/02/17 11:16 93 Nasal Cannula 1.0 01/02/17 11:15 37.1 72 20 121/71 (88) 86 Room Air 01/02/17 11:15 86 Room Air 01/02/17 10:45 92 Room Air Physical Exam General Appearance: NO APPARENT DISTRESS Respiratory/Chest: lungs clear, + pertinent finding (poor effort) Cardiovascular: regular rate, rhythm Incision Description: Clean, Dry & Intact Extremities: no calf tenderness Laboratory Results Last 24 Hours Test 01/02/17 11:18 01/02/17 17:11 01/02/17 22:04 01/03/17 06:52 Bedside Glucose 204 mg/dl 142 mg/dl 172 mg/dl White Blood Count 9.70 K/uL Red Blood Count 3.61 M/uL Hemoglobin 8.2 g/dL Hematocrit 27.1 % Mean Corpuscular Volume 75.1 fL Mean Corpuscular Hemoglobin 22.7 pg Mean Corpuscular Hemoglobin Concent 30.3 g/dl Platelet Count 296 K/uL Neutrophils (%) (Auto) 69.8 % Lymphocytes (%) (Auto) 19.5 % Monocytes (%) (Auto) 8.6 % Eosinophils (%) (Auto) 1.6 % Basophils (%) (Auto) 0.3 % Neutrophils # (Auto) 6.77 K/uL Lymphocytes # (Auto) 1.89 K/uL Monocytes # (Auto) 0.83 K/uL Eosinophils # (Auto) 0.16 K/uL Basophils # (Auto) 0.03 K/uL Immature Granulocyte % (Auto) 0.2 % Immature Granulocyte # (Auto) 0.02 K/uL Platelet Estimate NORMAL Microcytosis PRESENT Sodium Level 142 mmol/L Potassium Level 3.4 mmol/L Chloride Level 106 mmol/L Carbon Dioxide Level 32 mmol/L Anion Gap 4.0 mmol/L Blood Urea Nitrogen 7 mg/dl Creatinine 0.56 mg/dl Est Creatinine Clear Calc Drug Dose 104.8 ml/min Estimated GFR () 126.0 Estimated GFR (Non- 108.7 BUN/Creatinine Ratio 11.8 Random Glucose 168 mg/dl Calcium Level 8.1 mg/dl Test 01/03/17 07:51 Bedside Glucose 165 mg/dl Assessment and Plan Post-Op Day Number: 2 Continue Routine Care: - patient tolerating clears, will advance diet - pt with 88% sat on RA, 94% on 1 liter, poor inspiratory effort, discussed - H/H stable - path pending - glucoses stable at ~200
[2017-01-03] MEDS ORDERED: POTASSIUM CHLORIDE 10 MEQ TABCR PO STA (12:24)
--- NOTE | 2017-01-03 12:27 | Progress Note ---
Subjective Date of Service: Jan 03, 2017. Subjective Pt evaluation today including: conversation w/ patient, conversation w/ family , physical exam, chart review, lab review, review of studies, conversation w/ valuation consultant, review of inpatient medication list Nurse reported possible difficult to taper off oxygen Patient has no cough but feel pain in the abdomen when deep breathing Pulse ox was 88% when in room air Patient has no other complaint Review of Systems Constitutional: No fever, No chills, No sweats, No weight loss, No weakness, No fatigue, No problem reported Eyes: No worsening of vision, No eye pain, No redness, No discharge, No diplopia ENT: No hearing loss, No unusual epistaxis, No nasal symptoms, No sore throat, No tinnitus, No dental problems, No trouble swallowing Respiratory: No cough, No sputum, No wheezing, No shortness of breath, No dyspnea on exertion, No dyspnea at rest, No hemoptysis Cardiac: No chest pain, No orthopnea, No PND, No edema, No claudication, No palpitations Abdomen: + pain, No nausea, No vomiting, No diarrhea, No constipation Musculoskeletal: No joint pain, No muscle pain, No swelling, No calf pain Female : No dysuria, No urinary frequency, No hematuria, No incontinence, No abnormal vaginal bleeding, No vaginal discharge Neurologic: No memory loss, No paralysis, No weakness, No numbness/tingling, No vertigo, No balance problems Psychiatric: No depression symptoms, No anhedonism, No anxiety, No insomnia, No substance abuse Heme: No abnormal bleeding/bruising, No clotting problems, No swollen lymph nodes, No night sweats Endo: No fatigue, No excessive thirst, No excessive urination Skin: No rash, No itch, No new/changing skin lesions, No color change, No bleeding Objective Vital Signs Date Time Temp Pulse Resp B/P (MAP) Pulse Ox O2 Delivery O2 Flow Rate FiO2 01/03/17 11:58 37.3 85 20 112/87 (95) 89 Room Air 01/03/17 08:00 37.6 98 20 124/74 (91) 94 Nasal Cannula 1.0 01/03/17 08:00 94 Nasal Cannula 1.0 01/03/17 04:35 95 Nasal Cannula 2.0 Humidified Oxygen 01/03/17 04:35 37.4 95 22 134/75 (94) 95 Nasal Cannula 2.0 Humidified Oxygen 01/03/17 00:30 92 Nasal Cannula 2.0 Humidified Oxygen 01/03/17 00:30 36.9 98 20 144/79 (100) 92 Nasal Cannula 2.0 Humidified Oxygen 01/02/17 20:20 37.1 100 20 151/91 (111) 90 Room Air 01/02/17 16:00 84 Room Air 01/02/17 16:00 Nasal Cannula 2.0 01/02/17 16:00 37.7 98 20 123/75 (91) 93 Nasal Cannula 2.0 01/02/17 14:16 94 Nasal Cannula 1.0 01/02/17 14:16 94 Nasal Cannula 1.0 01/02/17 14:15 89 Room Air 01/02/17 14:15 89 Room Air Physical Exam General Appearance: WD/WN, no apparent distress Eyes: normal inspection, PERRL, EOMI, sclerae normal ENT: normal ENT inspection, hearing grossly normal, pharynx normal Neck: supple, no adenopathy, thyroid normal, no JVD, no carotid bruits, trachea midline Respiratory/Chest: chest non-tender, lungs clear, normal breath sounds, no respiratory distress, no accessory muscle use, + decreased breath sounds Cardiovascular: regular rate, rhythm, no edema, no gallop, no JVD, no murmur Abdomen: normal bowel sounds, non tender, soft, no organomegaly, no pulsatile mass Extremities: normal range of motion, non-tender, normal inspection, no pedal edema, no calf tenderness, normal capillary refill, pelvis stable Neurologic/Psychiatric: film recordist II-XII nml as tested, no motor/sensory deficits, alert, normal mood/affect, oriented x 3 Skin: normal color, warm/dry, no rash Lymphatic: no adenopathy Laboratory Results Last 24 Hours Test 01/02/17 17:11 01/02/17 22:04 01/03/17 06:52 01/03/17 07:51 Bedside Glucose 142 mg/dl 172 mg/dl 165 mg/dl White Blood Count 9.70 K/uL Red Blood Count 3.61 M/uL Hemoglobin 8.2 g/dL Hematocrit 27.1 % Mean Corpuscular Volume 75.1 fL Mean Corpuscular Hemoglobin 22.7 pg Mean Corpuscular Hemoglobin Concent 30.3 g/dl Platelet Count 296 K/uL Neutrophils (%) (Auto) 69.8 % Lymphocytes (%) (Auto) 19.5 % Monocytes (%) (Auto) 8.6 % Eosinophils (%) (Auto) 1.6 % Basophils (%) (Auto) 0.3 % Neutrophils # (Auto) 6.77 K/uL Lymphocytes # (Auto) 1.89 K/uL Monocytes # (Auto) 0.83 K/uL Eosinophils # (Auto) 0.16 K/uL Basophils # (Auto) 0.03 K/uL Immature Granulocyte % (Auto) 0.2 % Immature Granulocyte # (Auto) 0.02 K/uL Platelet Estimate NORMAL Microcytosis PRESENT Sodium Level 142 mmol/L Potassium Level 3.4 mmol/L Chloride Level 106 mmol/L Carbon Dioxide Level 32 mmol/L Anion Gap 4.0 mmol/L Blood Urea Nitrogen 7 mg/dl Creatinine 0.56 mg/dl Est Creatinine Clear Calc Drug Dose 104.8 ml/min Estimated GFR () 126.0 Estimated GFR (Non- 108.7 BUN/Creatinine Ratio 11.8 Random Glucose 168 mg/dl Calcium Level 8.1 mg/dl Test 01/03/17 11:45 Bedside Glucose 159 mg/dl Assessment and Plan 51-year-old female that is status post open hysterectomy and lysis of adhesions for a diagnosis of extensive endometriosis -pain management, DVT prophylaxis, PT per primary team History of Asthma, stable Decrease oxygen level and difficult to wean off NC O2, likely because of compromised deep breathing from abdominal pain after the procedure -Continue Advair 250/50 BID -Duo nebs every 4 hours as needed for wheezing or shortness of breath added - Encourage more frequent incentive spirometry, and try best, a number has improved from 500ml to 750 - Patient has been up and walk in hallway - I advise nurse to check oxygen level frequently when patient off oxygen Hypertension, was on for blood pressure medicine at home, currently blood pressure in reasonable level, and stable -Continue Norvasc 10 mg daily -Continue losartan HCTZ and a dose of 25/ 100, patient will verify the dose was family - Continue home dose of hydralazine Hyperlipidemia -Continue Lipitor 20 mg daily Diabetes-expect blood sugars to be increased after surgery -I will cont metformin 1000 mg BID Acute blood loss anemia, hemoglobin drop, likely from surgery blood lost and delusional, tomorrow morning that was ordered Discussed with nurse and patient Continued [facility] stay due to: multiple IV medications needed Discharge planning: home
[2017-01-03] MEDS ORDERED: NURSING VERBAL MED ORDER ONE (14:15)
[2017-01-03] MEDS ORDERED: RXC5 PO (18:08)
--- NOTE | 2017-01-03 18:10 | Discharge Instructions ---
Discharge Instructions Date of Service Jan 03, 2017. Admission Reason for Admission: Dysfunctional Uterine Bleeding Discharge Discharge Diagnosis / Problem: same Discharge Goals Goal(s): Routine recovery after surgery Activity Recommendations Activity Limitations: as noted below . Instructions / Follow-Up Instructions / Follow-Up ACTIVITY RECOMMENDATIONS: Activity: * During the first week at home, your activity should be similar to that done at the hospital prior to discharge. Your primary activity is in-house walking interspersed with rest periods. Preparing lunch for yourself is acceptable. You may go up and down stairs. Try to stay up progressively longer periods of time to help regain your strength more quickly. * During the second week at home, activities should include some meal preparation, walking to strengthen abdominal muscles and riding in a car. You may drive a car and make brief shopping trips at the end of the second week at home. * Lifting should not exceed 15-20 pounds during the first month after surgery. * Sexual intercourse can usually be resumed about 6 weeks after surgery depending on findings at your post-operative examinations. Bathing: * Showers or baths are permissible. Sitting in four to six inches of hot water (sitz bath) is often comforting after vaginal surgery and is permitted at any time. A sitz bath at bedtime can also assist in a better night's sleep. SPECIAL CARE INSTRUCTIONS: The major discomforts related to surgery have now passed and progressive improvement will occur. The tight uncomfortable feeling in the abdominal, pelvic and back area will gradually fade away. Fatigue may take the longest to disappear; your energy level may take several weeks to return to normal. At times you may become frustrated or impatient over not feeling as well or doing as much as you'd like , but this is a normal reaction to surgery and will pass with time. Vaginal Discharge: * Odorous, blood-tinged or brownish discharge may be present for one to three weeks after surgery. * Pads should be used and not tampons. * Stitches may be passed vaginally. * Bleeding may be somewhat increased approximately two weeks after surgery, which is related to the stitches dissolving. * If bleeding becomes free flowing, notify our office at . Bowel Care: * Constipation after surgery is very common. Foods that promote bowel activity (bran, fruit, prune juice) should be included in your diet. * A capsule, DIALOSE-PLUS, can be purchased without a prescription and can be taken daily (one or two capsules) to assist in promoting bowel activity. * If you have had vaginal surgery involving your rectum, we will discuss this when discharged from the hospital. Temperature: * Any fever above 100.4 degrees F should be reported to our office at [phone]. FOLLOW-UP: Post-Operative Appointments: * Individual instructions will have been given about the timing of your first examination, but this is usually at the end of the second week home. * You will need to call the office at soon after discharge to make the appointment for your post-op check-up if it has not already been scheduled. * Additional information regarding activity, sexual intercourse and when to return to work will be given at this appointment. WE WISH YOU A SPEEDY RECOVERY! Current Hospital Diet Patient's current hospital diet: Diabetes Type 2 Diet Discharge Diet Recommended Diet: Diabetes Type 2 Diet Procedures Procedures Performed: 1)Diagnostic laparoscopy, 2)total abdominal hysterectomy with bilateral salpingo-oophorectomy, 3)extensive lysis of adhesions, 4)post procedure cystoscopy, 5)general surgery consultation. Pending Studies Studies pending at discharge: no Laboratory Results Hemoglobin A1c Test 12/08/16 11:14 Range/Units Estimated Average Glucose 169 mg/dl Hemoglobin A1c 7.5 H 4.5-5.6 % Medical Emergencies . Who to Call and When: Medical Emergencies: If at any time you feel your situation is an emergency, please call 911 immediately. . Non-Emergent Contact Non-Emergency issues call your: Engine Dispatcher Call Non-Emergent contact if: you have a fever, temperature is above 100.5, your pain is not controlled, your pain is worsening, wound has increased drainage, wound has increased redness . . "Provider Documentation" section prepared by Nick Daniels. . VTE Core Measure Inpt VTE Proph given/why not?: Kirby Brandt, [facility] [place] Drug Monitoring Program Search Results: patient reviewed within database, no issues identified
[2017-01-03] MEDS: ACETAMINOPHEN IV 100 ML IV PRN (18:36)
[2017-01-03] MEDS: ATORVASTATIN 20 MG TAB PO SCH (21:24)
[2017-01-03] MEDS: MAGNESIUM HYDROXIDE SUSP 30 ML UDC PO SCH (21:24)
[2017-01-03] MEDS: AMLODIPINE BESYLATE 5 MG TAB PO SCH (21:25)
[2017-01-03] MEDS: SENNA 8.6 MG TAB PO SCH (21:26)
[2017-01-04] VITALS (7 sets, daily range): BP systolic 115–130; BP diastolic 70–78; PULSE 84–92; TEMP 36.7–37.1; O2SAT 88–89
[2017-01-04] MEDS: OXYCODONE HCL IR 5 MG TAB (IMMEDIATE RELEASE) PO PRN (01:59)
[2017-01-04] MEDS: OXYCODONE/ACETAMINOPHEN 5-325 TAB PO PRN ×2 (06:14→10:54)
[2017-01-04 06:31] LABS: BASO % 0.2 %; BASO ABS # 0.02 K/uL (0-0.2); EOS % 8.1 %; HEMATOCRIT 27.2 % (37-47); IG% 0.3 %; LYMPH % 30.9 %; LYMPH ABS # 2.82 K/uL (1.2-3.4); MEAN CELL VOLUME 75.8 fL (80-100); MEAN CORPUSCULAR HEMOGLOBIN 22.8 pg (25-34); MEAN CORPUSCULAR HGB CONC 30.1 g/dl (32-36); MEAN PLATELET VOLUME 8.9 fL (7.4-10.4); MONO % 8.1 %; NEUT % 52.4 %; PLATELET COUNT 307 K/uL (130-400); RED BLOOD COUNT 3.59 M/uL (4.2-5.4); WHITE BLOOD COUNT 9.14 K/uL (4.8-10.8)
[2017-01-04 07:01] LABS: BUN/CREATININE RATIO 9.7 (10-20); CALCIUM 8.4 mg/dl (8.5-10.1); CREATININE 0.67 mg/dl (0.60-1.20); POTASSIUM 3.4 mmol/L (3.5-5.1)
[2017-01-04 07:03] LABS: COMPLETE YES; MICROCYTOSIS PRESENT
--- NOTE | 2017-01-04 07:25 | OB/GYN Progress Note ---
[employer] Progress Note Date of Service Jan 04, 2017. Subjective conversation w/ patient, physical exam Ambulation: ambulating normally Voiding: no voiding problems Objective Vital Signs Date Time Temp Pulse Resp B/P (MAP) Pulse Ox O2 Delivery O2 Flow Rate FiO2 01/04/17 03:50 36.7 84 20 115/73 (87) 88 Room Air 01/04/17 02:00 88 Room Air 01/04/17 00:30 37.1 92 24 122/70 (87) 89 Room Air 01/04/17 00:30 89 Room Air 01/03/17 21:20 104 123/76 (92) 01/03/17 19:40 36.7 96 20 121/71 (88) 90 Room Air 01/03/17 17:20 92 Room Air 01/03/17 16:59 97 18 92 Room Air 01/03/17 15:40 37.1 90 18 132/77 (95) 90 Room Air 01/03/17 15:40 90 Room Air 01/03/17 13:13 90 Room Air 01/03/17 11:58 37.3 85 20 112/87 (95) 89 Room Air 01/03/17 08:00 37.6 98 20 124/74 (91) 94 Nasal Cannula 1.0 01/03/17 08:00 94 Nasal Cannula 1.0 Physical Exam General Appearance: WELL-APPEARING, NO APPARENT DISTRESS Respiratory/Chest: lungs clear Cardiovascular: regular rate, rhythm Incision Description: Clean, Dry & Intact Extremities: no calf tenderness Laboratory Results Last 24 Hours Test 01/03/17 07:51 01/03/17 11:45 01/03/17 16:41 01/03/17 22:14 Bedside Glucose 165 mg/dl 159 mg/dl 227 mg/dl 257 mg/dl Test 01/04/17 00:44 01/04/17 06:13 Bedside Glucose 206 mg/dl White Blood Count 9.14 K/uL Red Blood Count 3.59 M/uL Hemoglobin 8.2 g/dL Hematocrit 27.2 % Mean Corpuscular Volume 75.8 fL Mean Corpuscular Hemoglobin 22.8 pg Mean Corpuscular Hemoglobin Concent 30.1 g/dl Platelet Count 307 K/uL Mean Platelet Volume 8.9 fL Neutrophils (%) (Auto) 52.4 % Lymphocytes (%) (Auto) 30.9 % Monocytes (%) (Auto) 8.1 % Eosinophils (%) (Auto) 8.1 % Basophils (%) (Auto) 0.2 % Neutrophils # (Auto) 4.79 K/uL Lymphocytes # (Auto) 2.82 K/uL Monocytes # (Auto) 0.74 K/uL Eosinophils # (Auto) 0.74 K/uL Basophils # (Auto) 0.02 K/uL RDW Standard Deviation 42.0 fL RDW Coefficient of Variation 15.1 % Immature Granulocyte % (Auto) 0.3 % Immature Granulocyte # (Auto) 0.03 K/uL Microcytosis PRESENT Sodium Level 139 mmol/L Potassium Level 3.4 mmol/L Chloride Level 102 mmol/L Carbon Dioxide Level 32 mmol/L Anion Gap 5.0 mmol/L Blood Urea Nitrogen 7 mg/dl Creatinine 0.67 mg/dl Est Creatinine Clear Calc Drug Dose 87.6 ml/min Estimated GFR () 118.8 Estimated GFR (Non- 102.5 BUN/Creatinine Ratio 9.7 Random Glucose 153 mg/dl Calcium Level 8.4 mg/dl Assessment and Plan Post-Op Day Number: 3 Continue Routine Care: - patient passing flatus, ambulating, tolerating po med - will d/c home, instructions given - encouraged to be compliant with medications - questions answered - f/u in 2 weeks for post-op check
--- NOTE | 2017-01-04 07:37 | Discharge Summary ---
Discharge Summary Date of Service Jan 04, 2017. Discharge Summary Admission Date: Jan 01, 2017 at 09:30 Discharge Date: Jan 04, 2017 Discharge Disposition: Home Principal Diagnosis: dysfunctional uterine bleeding Immunizations: Have You Had Influenza Vaccine: Yes History of Tetanus Vaccine?: Yes History of Pneumococcal: No History of Hepatitis B Vaccine: No Procedures: 1) diagnostic laparoscopy 2) exploratory laparotomy 3) total abdominal hysterectomy with bilateral salpingo-oophorectomy 4) lysis of adhesions Consultations: Hospitalist Medication Reconciliation New Medications: Oxycodone HCl (Oxycodone HCl) 5 Mg Tab 5 MG PO Q4H PRN for Pain, #30 TAB Continued Medications: Albuterol Hfa (Ventolin Hfa) 200 Puffs/60179 Mcg Aers 2-4 PUFFS INH Q4H PRN for RN, #1 INHALER Amlodipine (Norvasc) 10 Mg Tab 10 MG PO QPM, TAB Atorvastatin (Lipitor) 20 Mg Tab 20 MG PO HS, TAB Fluticasone Prop/Salmeterol (Advair Diskus 250/50 60 Dose) 1 Ea Aerp 1 PUFF INH BID, INHALER TAKES IRREGULARLY Hctz/Losartan (Hyzaar 25MG/100MG) Tab 1 TAB PO DAILY, #30 TAB Hydralazine HCl (Hydralazine HCl) 10 Mg Tab 10 MG PO BID, #180 Metformin Hcl (Glucophage) 1,000 Mg Tab 1000 MG PO BID, TAB Montelukast Sodium (Montelukast Sodium) 10 Mg Tab 1 TAB PO QPM for 90 Days, TAB 3 Refills Naproxen (Aleve) 220 Mg Tab 220 MG PO PRN, TAB Tamoxifen Citrate (Nolvadex) 20 Mg Tab 20 MG PO QAM, #90 Hospital Course On day of admission patient was taken to the operating room she underwent a diagnostic laparoscopy which showed extensive adhesions in the pelvis preventing the hysterectomy from being performed laparoscopically. The patient then underwent an exploratory laparotomy with total abdominal hysterectomy bilateral salpingo-oophorectomy and extensive lysis of adhesions. Postoperatively the patient did well. Because of the multiple medical problems A consult with the hospitalist service to help manage the patient's asthma as well as diabetes. The Barrett catheter was removed on the first postoperative day and the patient became ambulatory. Nonsteroidal anti-inflammatory drugs could not be used because of the asthma history, as such the patient was maintained on by mouth oxycodone as well as IV Tylenol. Pathology returned showing benign endometrium and extensive pelvic endometriosis. By the third postoperative day the patient was ambulating without difficulty and passing flatus she was given the routine discharge instructions and the prescriptions for the medications as listed as above she will follow-up in the office in 2 weeks' time for a postoperative check but is always she's been instructed to call with any questions problems or difficulties. Total Time Spent: Less than 30 minutes This includes examination of the patient, discharge planning, medication reconciliation, and communication with other providers. Discharge Instructions Please refer to the electronic Patient Visit Report (Discharge Instructions) for additional information.
[2017-01-04] MEDS ORDERED: POTASSIUM CHLORIDE 10 MEQ TABCR PO STA (08:13)
[2017-01-04] MEDS: INSULIN ASPART 100 UNITS/ML 3 ML PEN SC SCH ×2 (08:25→12:26)
[2017-01-04] MEDS: LOSARTAN/HCTZ 50-12.5 EA TAB PO SCH (08:26)
[2017-01-04] MEDS: MONTELUKAST SOD 10 MG TAB PO SCH (08:26)
[2017-01-04] MEDS: FLUTICASONE/SALMETEROL 250/50 (ADVAIR) 14 PUFF/1 INHALER INH SCH (08:27)
[2017-01-04] MEDS: HydrALAZINE 10 MG TAB PO SCH (08:27)
[2017-01-04] MEDS: TAMOXIFEN CITRATE 10 MG TAB PO SCH (08:29)
[2017-01-04] MEDS ORDERED: GLYB2.5T7 PO (09:03)
--- NOTE | 2017-01-04 09:07 | Progress Note ---
Subjective Date of Service: Jan 04, 2017. Subjective Pt evaluation today including: conversation w/ patient, physical exam, chart review, lab review, review of studies, conversation w/ [employer] consultant, review of inpatient medication list feeling good, pain better controlled, no hypoxia Review of Systems Constitutional: No fever, No chills, No sweats, No weight loss, No weakness, No fatigue, No problem reported Eyes: No worsening of vision, No eye pain, No redness, No discharge, No diplopia ENT: No hearing loss, No unusual epistaxis, No nasal symptoms, No sore throat, No tinnitus, No dental problems, No trouble swallowing Respiratory: No cough, No sputum, No wheezing, No shortness of breath, No dyspnea on exertion, No dyspnea at rest, No hemoptysis Cardiac: No chest pain, No orthopnea, No PND, No edema, No claudication, No palpitations Abdomen: + pain, No nausea, No vomiting, No diarrhea, No constipation Musculoskeletal: No joint pain, No muscle pain, No swelling, No calf pain Female : No dysuria, No urinary frequency, No hematuria, No incontinence, No abnormal vaginal bleeding, No vaginal discharge Neurologic: No memory loss, No paralysis, No weakness, No numbness/tingling, No vertigo, No balance problems Psychiatric: No depression symptoms, No anhedonism, No anxiety, No insomnia, No substance abuse Heme: No abnormal bleeding/bruising, No clotting problems, No swollen lymph nodes, No night sweats Endo: No fatigue, No excessive thirst, No excessive urination Skin: No rash, No itch, No new/changing skin lesions, No color change, No bleeding Objective Vital Signs Date Time Temp Pulse Resp B/P (MAP) Pulse Ox O2 Delivery O2 Flow Rate FiO2 01/04/17 07:49 37.0 88 16 130/78 (95) 89 Room Air 01/04/17 07:46 89 Room Air 01/04/17 03:50 36.7 84 20 115/73 (87) 88 Room Air 01/04/17 02:00 88 Room Air 01/04/17 00:30 37.1 92 24 122/70 (87) 89 Room Air 01/04/17 00:30 89 Room Air 01/03/17 21:20 104 123/76 (92) 01/03/17 19:40 36.7 96 20 121/71 (88) 90 Room Air 01/03/17 17:20 92 Room Air 01/03/17 16:59 97 18 92 Room Air 01/03/17 15:40 37.1 90 18 132/77 (95) 90 Room Air 01/03/17 15:40 90 Room Air 01/03/17 13:13 90 Room Air 01/03/17 11:58 37.3 85 20 112/87 (95) 89 Room Air Physical Exam General Appearance: WD/WN, no apparent distress Eyes: normal inspection, PERRL, EOMI, sclerae normal ENT: normal ENT inspection, hearing grossly normal, pharynx normal Neck: supple, no adenopathy, thyroid normal, no JVD, no carotid bruits, trachea midline Respiratory/Chest: chest non-tender, lungs clear, normal breath sounds, no respiratory distress, no accessory muscle use Cardiovascular: regular rate, rhythm, no edema, no gallop, no JVD, no murmur Abdomen: normal bowel sounds, non tender, soft, no organomegaly, no pulsatile mass, + tenderness (mild ) Extremities: normal range of motion, non-tender, normal inspection, no pedal edema, no calf tenderness, normal capillary refill, pelvis stable Neurologic/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, no motor/sensory deficits, alert, normal mood/affect, oriented x 3, + abnormal cerebellar tests Skin: normal color, warm/dry, no rash Lymphatic: no adenopathy Laboratory Results Last 24 Hours Test 01/03/17 11:45 01/03/17 16:41 01/03/17 22:14 01/04/17 00:44 Bedside Glucose 159 mg/dl 227 mg/dl 257 mg/dl 206 mg/dl Test 01/04/17 06:13 01/04/17 07:46 White Blood Count 9.14 K/uL Red Blood Count 3.59 M/uL Hemoglobin 8.2 g/dL Hematocrit 27.2 % Mean Corpuscular Volume 75.8 fL Mean Corpuscular Hemoglobin 22.8 pg Mean Corpuscular Hemoglobin Concent 30.1 g/dl Platelet Count 307 K/uL Mean Platelet Volume 8.9 fL Neutrophils (%) (Auto) 52.4 % Lymphocytes (%) (Auto) 30.9 % Monocytes (%) (Auto) 8.1 % Eosinophils (%) (Auto) 8.1 % Basophils (%) (Auto) 0.2 % Neutrophils # (Auto) 4.79 K/uL Lymphocytes # (Auto) 2.82 K/uL Monocytes # (Auto) 0.74 K/uL Eosinophils # (Auto) 0.74 K/uL Basophils # (Auto) 0.02 K/uL RDW Standard Deviation 42.0 fL RDW Coefficient of Variation 15.1 % Immature Granulocyte % (Auto) 0.3 % Immature Granulocyte # (Auto) 0.03 K/uL Microcytosis PRESENT Sodium Level 139 mmol/L Potassium Level 3.4 mmol/L Chloride Level 102 mmol/L Carbon Dioxide Level 32 mmol/L Anion Gap 5.0 mmol/L Blood Urea Nitrogen 7 mg/dl Creatinine 0.67 mg/dl Est Creatinine Clear Calc Drug Dose 87.6 ml/min Estimated GFR () 118.8 Estimated GFR (Non- 102.5 BUN/Creatinine Ratio 9.7 Random Glucose 153 mg/dl Calcium Level 8.4 mg/dl Bedside Glucose 188 mg/dl Assessment and Plan 51-year-old female that is status post open hysterectomy and lysis of adhesions for a diagnosis of extensive endometriosis -pain management, DVT prophylaxis, PT per primary team History of Asthma, stable Decrease oxygen level and difficult to wean off NC O2, likely because of compromised deep breathing from abdominal pain after the procedure -Continue Advair 250/50 BID -Duo nebs every 4 hours as needed for wheezing or shortness of breath added - Encourage more frequent incentive spirometry, and try best, a number has improved from 500ml to 750 - Patient has been up and walk in hallway - I advise nurse to check oxygen level frequently when patient off oxygen, it has been doing well - I advice her to continue activity and IR after discharging Hypertension, was on for blood pressure medicine at home, currently blood pressure in reasonable level, and stable -Continue Norvasc 10 mg daily -Continue losartan HCTZ and a dose of 25/ 100, patient will verify the dose was family - Continue home dose of hydralazine Hyperlipidemia -Continue Lipitor 20 mg daily Diabetes-expect blood sugars to be increased after surgery -I will cont metformin 1000 mg BID, has counselling and excise, and medicine compliance - for better healing of incision, I add DiaBeta 2.5 mg po daily for better control of DM and BG, has advised patient to follow up with pcp , she agreed Acute blood loss anemia, hemoglobin drop, likely from surgery blood lost and delusional, hh stable Discussed with nurse and patient Continued [facility] stay due to: other Discharge planning: home
--- NOTE | 2017-01-04 09:11 | Discharge Instructions ---
Discharge Instructions Date of Service Jan 04, 2017. Admission Reason for Admission: Dysfunctional Uterine Bleeding Discharge Discharge Diagnosis / Problem: DM, HTN Discharge Goals Goal(s): Decrease discomfort, Improve function Activity Recommendations Activity Limitations: resume your previous activity . Instructions / Follow-Up Instructions / Follow-Up you need to continue activity and IR after discharging you have Diabetes I will cont metformin 1000 mg BID, has counselling diet control and excise, and medicine compliance For better healing of incision, I add DiaBeta 2.5 mg po daily for better control of DM and BG, - you need to follow up with your primary care physician in 1 week, - take medication as instructed, never overdose or any misuse, or take with alcohol, because misuse of medicine may cause organ damage or , call your primary care physician if have questions of medicaitons. - call your primary care physician OR go to local emergency room if has any fever/chill, chest pain, shortness of breathing, nausea/vomiting/abdominal pain , facial droop/slurry speech/local weakness, or if has any questions. Current Hospital Diet Patient's current hospital diet: Diabetes Type 2 Diet Discharge Diet Recommended Diet: Diabetes Type 1 Diet Procedures Procedures Performed: 1)Diagnostic laparoscopy, 2)total abdominal hysterectomy with bilateral salpingo-oophorectomy, 3)extensive lysis of adhesions, 4)post procedure cystoscopy, 5)general surgery consultation. Pending Studies Studies pending at discharge: no Laboratory Results Hemoglobin A1c Test 12/08/16 11:14 Range/Units Estimated Average Glucose 169 mg/dl Hemoglobin A1c 7.5 H 4.5-5.6 % Medical Emergencies . Who to Call and When: Medical Emergencies: If at any time you feel your situation is an emergency, please call 911 immediately. . Non-Emergent Contact Non-Emergency issues call your: Primary Care Provider . . "Provider Documentation" section prepared by Kole Daley. . VTE Core Measure Inpt VTE Proph given/why not?: Kirby Brandt, SCD's
--- NOTE | 2017-01-04 09:28 | DISCHARGE SUMMARY ---
DATE OF DISCHARGE: 01/04/2017 ADMITTING DIAGNOSES: 1. Dysfunctional uterine bleeding. 2. Dysmenorrhea. DISCHARGE DIAGNOSES: 1. Same. 2. Extensive pelvic endometriosis. 3. Extensive pelvic adhesions. PROCEDURES PERFORMED: 1. Diagnostic laparoscopy. 2. Exploratory laparotomy. 3. Total abdominal hysterectomy with bilateral salpingo-oophorectomy. 4. Lysis of adhesions. DISCHARGE MEDICATIONS: Oxycodone 5 mg 1-2 p.o. q. 4-6 hours p.r.n. pain. ADMISSION HISTORY: The patient is a 51-year-old G2, P2 who was originally admitted for total laparoscopic hysterectomy with bilateral salpingo-oophorectomy for chronic dysfunctional uterine bleeding. The patient carries a diagnosis of PCOS as well as type 2 diabetes. This was treated with metformin. On the metformin she previously had had bleeding every 4-6 weeks. Over the last year her bleeding had degenerated THIS DICTATION WAS CUT OFF!
== END 2017-01-04 13:00 | disposition home or self-care (01) | DRG 742 ==
LOC: C.ACU 09:28 → C.MS4N 09:30 → ENRESERV 16:25
PROVIDERS: ADMIT Obstetrics & Gynecology; ATTEND Obstetrics & Gynecology
PROC: 0DNW0ZZ Release Peritoneum, Open Approach (ICD-10-PCS; principal; 2017-01-01 10:45)
PROC: 0DNE0ZZ Release Large Intestine, Open Approach (ICD-10-PCS; principal; 2017-01-01 10:45)
PROC: 0UT20ZZ Resection of Bilateral Ovaries, Open Approach (ICD-10-PCS; principal; 2017-01-01 10:45)
PROC: 0UJD4ZZ Inspection of Uterus and Cervix, Percutaneous Endoscopic Approach (ICD-10-PCS; principal; 2017-01-01 10:45)
PROC: 0UT90ZZ Resection of Uterus, Open Approach (ICD-10-PCS; principal; 2017-01-01 10:45)
PROC: 0TJB8ZZ Inspection of Bladder, Via Natural or Artificial Opening Endoscopic (ICD-10-PCS; principal; 2017-01-01 10:45)
PROC: 0UT70ZZ Resection of Bilateral Fallopian Tubes, Open Approach (ICD-10-PCS; principal; 2017-01-01 10:45)
DX: N93.8 Other specified abnormal uterine and vaginal bleeding (principal); D62 Acute posthemorrhagic anemia; N94.6 Dysmenorrhea, unspecified; N73.6 Female pelvic peritoneal adhesions (postinfective); E66.9 Obesity, unspecified; C50.919 Malignant neoplasm of unspecified site of unspecified female breast; D72.1 Eosinophilia; N80.3 Endometriosis of pelvic peritoneum; J45.909 Unspecified asthma, uncomplicated; I10 Essential (primary) hypertension; E11.9 Type 2 diabetes mellitus without complications; E78.5 Hyperlipidemia, unspecified; Z68.27 Body mass index [BMI] 27.0-27.9, adult; Z91.14 Patient's other noncompliance with medication regimen; Z79.899 Other long term (current) drug therapy; Z79.51 Long term (current) use of inhaled steroids; Z79.84 Long term (current) use of oral hypoglycemic drugs; Z79.1 Long term (current) use of non-steroidal anti-inflammatories (NSAID)

== ENCOUNTER 2021-10-05 07:56 | Inpatient (IN) ==
[2021-10-05] MEDS ORDERED: MoRPHine SULFATE 4 MG/ML 1 ML CARP\\VIAL IV STA ×2 (08:47→10:58)
[2021-10-05] MEDS ORDERED: ONDANSETRON INJ 2 MG/ML 2 ML VIAL IV STA (08:47)
--- NOTE | 2021-10-05 09:03 | Emergency Department Note ---
Impression & Plan Sialoadenitis of submandibular gland, Type 2 diabetes mellitus, Thyroid nodule, Acute sore throat ED Provider Note Provider: Atul Prado MD DATE OF SERVICE: 10/05/2021 CHIEF COMPLAINT: Throat neck pain HISTORY OF PRESENT ILLNESS: Patient is a 86-year-old female history of diabetes, hypertension, hyperlipidemia presenting here today reporting onset over the past 3 days of pain in the right lower jaw neck region. States worsening pain and some swelling here now making it difficult for her to swallow. Denies any difficulty breathing. Denies significant cough. History of prior breast cancer and breast radiation. Denies history of neck surgeries. Patient denies fever. Patient states occasionally she will get a twinge or to a pain for maybe few hours at the right neck every 4 to 5 months but this usually resolves after the night as well. She has been using some lemon drops and warm compresses and things are not improving. Has been using Tylenol and Motrin regularly without improvement. Given continued symptoms and some worsening swelling here as well as now basically unable to swallow due to the pain came here for further evaluation. REVIEW OF SYSTEMS: A total of 10 review of systems was obtained and negative except as stated above in the HPI. 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 NECK: Trachea midline. Without crepitus but increased swelling of the right upper neck below the jawline. ENT: Mucous membranes pink and moist. Pharynx without erythema or exudate without significant uvular deviation or submandibular elevation/swelling. Not stridulous. LUNGS: Airway patent. No retractions. Breath sounds clear with good air entry bilaterally. HEART: Regular rate and rhythm. No chest wall tenderness SKIN: Acyanotic, warm, dry, without rashes EXTREMITIES: Without swelling, tenderness or deformity NEUROLOGICAL: No focal deficits. No aphasia. No facial droop or slurred speech although the patient is slightly hoarse. Ambulatory. PDMP was checked without noted issue. Patient's laboratory studies and imaging reviewed. Differential includes Cervical strain, fracture, cervical disc disease, lymphadenitis, meningitis, tumor, arterial dissection, thyroiditis, parotitis, mastoiditis, neurologic, cardiovascular, as well as other pathologies. IMPRESSION/MEDICAL DECISION MAKING: [id number] female with some swelling and tenderness just under the right jaw. Difficulty swallowing due to this pain. Denies respiratory symptoms and although she is a bit hoarse does not sound stridulous. Clear lungs otherwise. Afebrile. Patient has been using sialagogues and warm compresses and does not have that significant parotid tenderness on exam. No evidence on clinical exam from what I can tell of a large FOREST ECOLOGY PROFESSOR. Question possible submandibular and upper neck abscess due to the swelling. There is no crepitus here. Patient without sublingual swelling and I doubt this represents angina at this point. Given some morphine for pain and sent for CT scan of the neck. Patient's blood work is returned with some leukocytosis at 16. CT scan report reviewed with evidence of a right submandibular duct calculus with associated inflammation. Noted some mild right parotid gland inflammation per the scan report on some postoperative sinus issues. Patient made aware of the thyroid nodule. Given additional morphine for pain control and given a dose of Unasyn. Call was made to otolaryngology to discuss the case and Dr. Warren recommended IV antibiotics at this time. Patient again with difficulty to swallow at this time and as such started on Unasyn and feel further care here at the hospital to be prudent to look for clinical improvement of her symptoms and to see if she is able to tolerate p.o. intake. DIAGNOSIS: Right submandibular stone with infection, sore throat DISPOSITION: Hospitalist will evaluate Patient was agreeable with this plan. Past Med/Surg History Medical History (Updated 10/05/21 @ 16:02 by Atul Prado M.D.) Anemia Asthma Heart murmur Hyperlipidemia Hypertension Thyroid nodule Type 2 diabetes mellitus Surgical History (Updated 06/11/19 @ 10:19 by Zoey Castro RN) History of breast surgery 2005 - Fibroadenoma removed left breast 2011 - Fibroadenoma removed left breast History of section 09/25/98, 12/09/02 History of left mastectomy 11/22/12 (simple nipple sparing with implant reconstruction by Dr. Moss) History of lumpectomy 05/13/19 - Right Breast Family History (Updated 06/11/19 @ 10:23 by Zoey Castro, KIA) Mother No problems noted. Father , Passed age 56 of MS No problems noted. Sister Breast cancer, Onset Age: 40 Alive and well now Sister No problems noted. Sister No problems noted. Sister No problems noted. Sister No problems noted. Son No problems noted. Son No problems noted. 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 Beliefs That Will Affect Care: None marital status: Current Living Situation: Spouse and Family current occupational status: employed current occupation: [employer] Feels Safe at Home: Yes Childhood Exposure to Second-Hand Smoke: No Diet Comment: Does not eat pork caffeine: Yes (Occasionally - 1-2 cups of tea/day ) during the past year weight has: remained stable Dental Care, Regularly: Yes Assistive Devices: Glasses Allergies Allergies Allergy/AdvReac Type Severity Reaction Status Date / Time Dust Allergy Unknown ASTHMA Uncoded 10/05/21 11:45 SYMTOMS Home Meds Home Medications Medication Instructions Recorded Confirmed aspirin 81 mg tablet,delayed 81 mg PO DAILY 06/11/19 10/05/21 release fluticasone furoate 200 1 puffs INH DAILY PRN 06/11/19 10/05/21 mcg-vilanterol 25 mcg/dose inhalation powder (Breo Ellipta) amlodipine 10 mg tablet 10 mg PO DAILY 10/05/21 10/05/21 irbesartan 300 1 tab PO DAILY 10/05/21 10/05/21 mg-hydrochlorothiazide 12.5 mg tablet metformin 1,000 mg tablet 1,000 mg PO BID 10/05/21 10/05/21 rosuvastatin 40 mg tablet 40 mg PO DAILY 10/05/21 10/05/21 Results & Data (ED) Vital Signs Vital Signs - 24 hr 10/05/21 07:58 10/05/21 09:36 10/05/21 10:00 Temperature 37.1 C Temperature Source Temporal Artery Scan Pulse Rate 97 H 87 86 Pulse Rate from SpO2 Sensor 87 87 Respiratory Rate 14 19 19 Blood Pressure 159/89 H 150/86 H 155/95 H Blood Pressure Mean 112 107 115 Pulse Oximetry 95 93 93 Oxygen Delivery Method Room Air Room Air Room Air Sepsis Recent Fever Within 48 Hours No Sepsis New/Unexplained Change in Mental Status No Sepsis Action Taken by Nursing No Action Required Laboratory Data Result diagrams: 10/05/21 09:08 10/05/21 09:08 Lab Results 10/05/21 10/05/21 10/05/21 Range/Units 09:08 09:08 09:08 WBC 16.56 H (4.8-10.8) K/uL RBC 4.63 (4.2-5.4) M/uL Hgb 12.8 (12.0-16.0) g/dL Hct 38.4 (37-47) % MCV 82.9 (80-100) fL MCH 27.6 (25-34) pg MCHC 33.3 (32-36) g/dL RDW Std Deviation 39.1 (36.4-46.3) fL RDW Coeff of Toño 13.0 (11.5-14.5) % Plt Count 322 (130-400) K/uL MPV 10.2 (7.4-10.4) fL Immature Gran % (Auto) 0.4 % Neut % (Auto) 78.9 % Lymph % (Auto) 11.6 % Canyon % (Auto) 8.5 % Eos % (Auto) 0.5 % Baso % (Auto) 0.1 % Neut # (Auto) 13.06 H (1.4-6.5) K/uL Lymph # (Auto) 1.92 (1.2-3.4) K/uL Canyon # (Auto) 1.40 H (0.11-0.59) K/uL Eos # (Auto) 0.09 (0-0.5) K/uL Baso # (Auto) 0.02 (0-0.2) K/uL Immature Gran # (Auto) 0.07 H (0.00-0.02) K/uL Sodium 136 (136-145) mmol/L Potassium 3.2 L (3.5-5.1) mmol/L Chloride 98 (98-107) mmol/L Carbon Dioxide 29 (21-32) mmol/L Anion Gap 9 (3-11) BUN 10 (6-23) mg/dl Creatinine 0.52 L (0.6-1.2) mg/dl Est Cr Clr Drug Dosing 105.5 ml/min Est GFR ( Amer) 124.7 ml/min Est GFR (Non-Af Amer) 107.6 ml/min BUN/Creatinine Ratio 19.2 (10-20) Glucose 210 H (70-99(Fasting)) mg/dl Calcium 9.8 (8.5-10.1) mg/dl Total Bilirubin 0.8 (0.2-1.0) mg/dl AST 10 L (13-39) U/L ALT 12 (7-52) U/L Alkaline Phosphatase 100 (34-104) U/L Total Protein 7.3 (6.0-8.3) gm/dl Albumin 4.0 (3.4-5.0) gm/dl Globulin 3.3 (2.5-4.0) gm/dl Albumin/Globulin Ratio 1.2 (0.9-2) SARS-CoV-2, RNA, NAAT NEGATIVE (NEGATIVE) Administered Medications Discontinued Medications Acetaminophen (Acetaminophen 1000 Mg/100 Ml Iv) Confirm Administered Dose 1,000 mg IV .STK-MED ONE Stop: 10/05/21 12:03 Last Admin: 10/05/21 12:11 Dose: Not Given Documented by: [id number] Ampicillin Sodium/Sulbactam Sodium 3,000 mg/ Sodium Chloride 108 mls @ 200 mls/hr IV NOW STA; Protocol Stop: 10/05/21 11:30 Last Infusion: 10/05/21 12:51 Dose: 0 mls/hr Documented by: [id number] Admin: 10/05/21 11:25 Dose: 200 mls/hr Documented by: [id number] Lactated Ringer's (Lr) 500 mls @ 999 mls/hr IV .Q31M ONE Stop: 10/05/21 11:50 Last Infusion: 10/05/21 13:19 Dose: 0 mls/hr Documented by: [id number] Admin: 10/05/21 12:41 Dose: 999 mls/hr Documented by: [id number] Acetaminophen (Ofirmev) 1,000 mg in 100 mls @ 400 mls/hr IV NOW STA Stop: 10/05/21 12:23 Last Infusion: 10/05/21 12:50 Dose: 0 mls/hr Documented by: [id number] Admin: 10/05/21 12:11 Dose: 400 mls/hr Documented by: [id number] Lactated Ringer's (Lr) 1,000 mls @ 999 mls/hr IV .Q1H1M ONE Stop: 10/05/21 13:04 Last Infusion: 10/05/21 14:30 Dose: 0 mls/hr Documented by: [id number] Admin: 10/05/21 13:22 Dose: 999 mls/hr Documented by: [id number] Ioversol (Optiray 320 100ml) 94 ml IV ONCE ONE Stop: 10/05/21 10:11 Last Admin: 10/05/21 10:11 Dose: 94 ml Documented by: [id number] Ketorolac Tromethamine (Ketorolac Tromethamine 15 Mg/Ml Vial) 15 mg IV NOW STA Stop: 10/05/21 11:55 Last Admin: 10/05/21 12:09 Dose: 15 mg Documented by: [id number] Morphine Sulfate (Morphine Sulfate 4 Mg/Ml 1 Ml Carp\Vial) 4 mg IV NOW STA Stop: 10/05/21 08:48 Last Admin: 10/05/21 09:15 Dose: 4 mg Documented by: [id number] Morphine Sulfate (Morphine Sulfate 4 Mg/Ml 1 Ml Carp\Vial) 4 mg IV NOW STA Stop: 10/05/21 10:59 Last Admin: 10/05/21 11:26 Dose: 4 mg Documented by: [id number] Ondansetron HCl (Ondansetron Inj 2 Mg/Ml 2 Ml Vial) 4 mg IV NOW STA Stop: 10/05/21 08:48 Last Admin: 10/05/21 09:15 Dose: 4 mg Documented by: [id number] Imaging Data Radiologist's Impression: Soft Tissue Neck CT 10/05/21 08:47 CT OF THE NECK WITH IV CONTRAST CLINICAL HISTORY: pain, right submandibular swelling, dysphagia COMPARISON STUDY: No previous studies for comparison. TECHNIQUE: Following IV administration of 94 mL of Optiray, helical axial images of the neck were obtained. Sagittal and coronal reconstructions were viewed. Automated exposure control was utilized for the study. A dose lowering technique was utilized adhering to the principles of ALARA. CT DOSE: 346.18 mGy.cm FINDINGS: Visualized portions of the intracranial contents are unremarkable. Orbits are unremarkable. There are postoperative findings within the sinuses. Note is made of polypoid because with thickening of the sinuses, most throughout within the maxillary sinuses. Note is made of a 7 mm calculus within the mid to distal right submandibular duct shown on axial image 203 of 405. This results in asymmetric enhancement and edema of the right submandibular gland with significant dilatation of the submandibular duct which measures 8 mm in caliber. There is increased enhancement of the wall of the submandibular duct. Smaller dilated ducts within the right submandibular gland are present. Extensive adjacent inflammation is noted extending into the right aspect of the hypopharynx and supraglottic airway with effacement of the right piriform sinus and resultant moderate airway narrowing. There is approximately 50% airway narrowing. The glottis is closed. There is associated mild prevertebral edema. Infiltration extends into the anterior aspect of the neck and upper chest. Left submandibular gland is unremarkable. No drainable fluid collection is identified. In addition, there is mild asymmetric enhancement of the right parotid gland. There is significant dilatation of the right parotid duct which measures 1.2 cm in caliber. No calculus is identified although sensitivity is diminished given streak artifact from dental amalgams. There is apparent caliber change of the right parotid duct on axial image 151 of 405. This could be due to a stricture or occult mass. A 3.6 x 2.8 cm hypodense right lobe thyroid nodule is present. Visualized portions of the lung apices are clear. IMPRESSION: 1. 7 mm obstructing calculus within the mid to distal right submandibular duct. This results in marked dilatation of the right submandibular duct and ductal branches as well as asymmetric enhancement and edema of the right submandibular gland consistent with sialoadenitis. Extensive associated inflammation, including mild prevertebral edema, and effacement of the right hypopharynx and right piriform sinus with approximate 50% supraglottic airway narrowing. This degree of inflammation suggests a superimposed infectious process. ENT consultation is suggested. 2. Mild asymmetric enhancement of the right parotid gland with significant dilatation of the right parotid duct. No parotid duct calculus identified. This ductal dilatation could be due to an occult mass, stricture or calculus. 3. Postoperative findings within the sinuses. Moderate mucosal thickening of the sinuses, most pronounced within the maxillary sinuses. 4. 3.6 x 2.8 cm right lobe thyroid nodule. ACT 112: Negative or not required by law. Electronically signed by: José Miguel Spann M.D. 10/05/2021 10:42 AM Discharge Plan Visit Data Chief Complaint: Throat Pain Stated Complaint: SWOLLEN THROAT, CANNNOT SWALLOW ED Provider: Atul Prado Discharge Problem: Sialoadenitis of submandibular gland, Type 2 diabetes mellitus, Thyroid nodule, Acute sore throat Patient Disposition: Admitted As Inpatient Discharge Instructions Interventions: ED Discharge Assessment Last Done: 10/05/21 14:15
[2021-10-05 09:34] LABS: Basophils # (auto) 0.02 K/uL (0-0.2); Basophils % (auto) 0.1 %; Eosinophils # (auto) 0.09 K/uL (0-0.5); Eosinophils % (auto) 0.5 %; Hematocrit (blood only) 38.4 % (37-47); Hemoglobin 12.8 g/dL (12.0-16.0); Immature Granulocytes # (auto) 0.07 K/uL (0.00-0.02); Immature Granulocytes % (auto) 0.4 %; Lymphocytes # (auto) 1.92 K/uL (1.2-3.4); Lymphocytes % (auto) 11.6 %; Mean Corpuscular Hemoglobin 27.6 pg (25-34); Mean Corpuscular Hgb Conc 33.3 g/dL (32-36); Mean Corpuscular Volume 82.9 fL (80-100); Mean Platelet Volume 10.2 fL (7.4-10.4); Monocytes % (auto) 8.5 %; Neutrophils # (auto) 13.06 K/uL (1.4-6.5); Neutrophils % (auto) 78.9 %; Platelet Count 322 K/uL (130-400); RDW Standard Deviation 39.1 fL (36.4-46.3); Red Blood Count 4.63 M/uL (4.2-5.4); White Blood Count 16.56 K/uL (4.8-10.8)
[2021-10-05 09:54] LABS: Albumin Globulin Ratio 1.2 (0.9-2); BUN Creatinine Ratio 19.2 (10-20); Bilirubin,Total 0.8 mg/dl (0.2-1.0); Calcium 9.8 mg/dl (8.5-10.1); Creatinine Clr Calc Pharmacy 105.5 ml/min; Est GFR (African American) 124.7 ml/min; Est GFR (Non-African American) 107.6 ml/min; Globulin 3.3 gm/dl (2.5-4.0); Potassium 3.2 mmol/L (3.5-5.1); Total Protein 7.3 gm/dl (6.0-8.3)
[2021-10-05] MEDS ORDERED: OPTIRAY 320 100ml IV ONE (10:10)
--- NOTE | 2021-10-05 10:43 | CT Scan Report ---
CT OF THE NECK WITH IV CONTRAST CLINICAL HISTORY: pain, right submandibular swelling, dysphagia COMPARISON STUDY: No previous studies for comparison. TECHNIQUE: Following IV administration of 94 mL of Optiray, helical axial images of the neck were ob tained. Sagittal and coronal reconstructions were viewed. Automated exposure control was utilized f or the study. A dose lowering technique was utilized adhering to the principles of ALARA. CT DOSE: 346.18 mGy.cm FINDINGS: Visualized portions of the intracranial contents are unremarkable. Orbits are unremarkable . There are postoperative findings within the sinuses. Note is made of polypoid because with thickeni ng of the sinuses, most throughout within the maxillary sinuses. Note is made of a 7 mm calculus with in the mid to distal right submandibular duct shown on axial image 203 of 405. This results in asymme tric enhancement and edema of the right submandibular gland with significant dilatation of the subman dibular duct which measures 8 mm in caliber. There is increased enhancement of the wall of the subman dibular duct. Smaller dilated ducts within the right submandibular gland are present. Extensive adjac ent inflammation is noted extending into the right aspect of the hypopharynx and supraglottic airway with effacement of the right piriform sinus and resultant moderate airway narrowing. There is approxi mately 50% airway narrowing. The glottis is closed. There is associated mild prevertebral edema. Infi ltration extends into the anterior aspect of the neck and upper chest. Left submandibular gland is un remarkable. No drainable fluid collection is identified. In addition, there is mild asymmetric enhancement of the right parotid gland. There is significant di latation of the right parotid duct which measures 1.2 cm in caliber. No calculus is identified althou gh sensitivity is diminished given streak artifact from dental amalgams. There is apparent caliber ch janet of the right parotid duct on axial image 151 of 405. This could be due to a stricture or occult mass. A 3.6 x 2.8 cm hypodense right lobe thyroid nodule is present. Visualized portions of the lung apices are clear. IMPRESSION: 1. 7 mm obstructing calculus within the mid to distal right submandibular duct. This results in marke d dilatation of the right submandibular duct and ductal branches as well as asymmetric enhancement an d edema of the right submandibular gland consistent with sialoadenitis. Extensive associated inflamma tion, including mild prevertebral edema, and effacement of the right hypopharynx and right piriform s inus with approximate 50% supraglottic airway narrowing. This degree of inflammation suggests a super imposed infectious process. ENT consultation is suggested. 2. Mild asymmetric enhancement of the right parotid gland with significant dilatation of the right pa rotid duct. No parotid duct calculus identified. This ductal dilatation could be due to an occult mas s, stricture or calculus. 3. Postoperative findings within the sinuses. Moderate mucosal thickening of the sinuses, most pronou nced within the maxillary sinuses. 4. 3.6 x 2.8 cm right lobe thyroid nodule. ACT 112: Negative or not required by law. Electronically signed by: José Miguel Spann M.D. 10/05/2021 10:42 AM
[2021-10-05] MEDS ORDERED: AMPICILLIN/SULBACTAM SOD 3,000 MG in 0.9 % SODIUM CHLORIDE 100 ML IV STA (10:58)
[2021-10-05] MEDS ORDERED: LACTATED RINGER'S 500 ML IV ONE (11:20)
--- NOTE | 2021-10-05 11:50 | History & Physical Report ---
Date of Service October 05, 2021 Assessment & Plan (1) Sialoadenitis of submandibular gland: Plan: Unasyn 3 g IV every 6 hourly Copious intravenous fluids Pain control with acetaminophen first-line, Toradol second line, morphine third line No stridor to suggest airway compromise. Consult ENT for possible stone removal -not seen on exam (2) Type 2 diabetes mellitus: Plan: Patient reports HbA1c 7-8. We will repeat with a.m. labs. NovoLog: Goal BSG Range: Low 100 mg/dL, High 140 mg/dL Correction Factor: 45 mg/dL/unit No carb coverage BSGs ACHS if eating, q6h if npo (3) Asthma: Plan: Patient only uses inhaler as needed. No wheezing on exam to suggest acute exacerbation. (4) Hyperlipidemia: Plan: While n.p.o. we will hold her rosuvastatin (5) Hypertension: Plan: She wishes to continue on amlodipine tonight. As long as taking sips will allow her to take this medications. Hold other anti-hypertensives until re-evaluation tomorrow. Advise against diuretics given oral dryness. (6) Thyroid nodule: Plan: Patient reports this is previously noted and had a biopsy 2 years ago. Follow- up with outpatient PCP to make sure it has not grown in size. Plan: VTE prophylaxis -low risk Diet -n.p.o. 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 She denies any fevers or chills. She reports having similar pains ongoing for the last 20 years which occur every 3 to 4 months but only last for a few hours. On this occasion she has had it for the last 3 days and has been excruciating with severity 10 out of 10. No radiation. In the ER she underwent CT imaging of the soft tissues of her neck which showed submandibular sialoadenitis with a 7 mm obstructing calculus in the mid to distal right submandibular duct, asymmetric enhancement of right parotid gland with significant dilatation of right parotid duct. No abscess was identified requiring draining. She was given Unasyn 3 g IV for antibiotic coverage. She is unable to tolerate oral intake at this time therefore was referred to medicine for admission ongoing management of this. Allergies Allergy/AdvReac Type Severity Reaction Status Date / Time Dust Allergy Unknown ASTHMA Uncoded 10/05/21 11:45 SYMTOMS Home Medications Medication Instructions Recorded Confirmed Type aspirin 81 mg tablet,delayed 81 mg PO DAILY 06/11/19 10/05/21 History release fluticasone furoate 200 1 puffs INH DAILY PRN 06/11/19 10/05/21 History mcg-vilanterol 25 mcg/dose inhalation powder (Breo Ellipta) amlodipine 10 mg tablet 10 mg PO DAILY 10/05/21 10/05/21 History irbesartan 300 1 tab PO DAILY 10/05/21 10/05/21 History mg-hydrochlorothiazide 12.5 mg tablet metformin 1,000 mg tablet 1,000 mg PO BID 10/05/21 10/05/21 History rosuvastatin 40 mg tablet 40 mg PO DAILY 10/05/21 10/05/21 History Past Med/Surg History Medical History (Updated 10/05/21 @ 12:10 by Mic Cain MD) Anemia Asthma Heart murmur Hyperlipidemia Hypertension Thyroid nodule Type 2 diabetes mellitus Surgical History (Updated 06/11/19 @ 10:19 by Zoey Castro RN) History of breast surgery 2005 - Fibroadenoma removed left breast 2011 - Fibroadenoma removed left breast History of section 09/25/98, 12/09/02 History of left mastectomy 11/22/12 (simple nipple sparing with implant reconstruction by Dr. Moss) History of lumpectomy 05/13/19 - Right Breast Family History (Updated 06/11/19 @ 10:23 by Zoey Castro RN) Mother No problems noted. Father , Passed age 56 of [place] No problems noted. Sister Breast cancer, Onset Age: 40 Alive and well now Sister No problems noted. Sister No problems noted. Sister No problems noted. Sister No problems noted. Son No problems noted. Son No problems noted. Social History (Updated 06/11/19 @ 10:25 by Zoey Castro RN) Smoking Status: Never smoker Hx Alcohol Use: No Hx Substance Use: No Preferred Language: Peruvian Communication Ability: Effective Visual Impairment: Limited Hearing Ability: Normal Beliefs That Will Affect Care: None marital status: Current Living Situation: Spouse and Family current occupational status: employed current occupation: PCP Feels Safe at Home: Yes Childhood Exposure to Second-Hand Smoke: No Diet Comment: Does not eat pork caffeine: Yes (Occasionally - 1-2 cups of tea/day ) during the past year weight has: remained stable Dental Care, Regularly: Yes Review of Systems Review of Systems: All systems reviewed & are unremarkable except as noted in HPI & below Physical Exam Constitutional: WD/WN, vitals as above + acute distress (Right throat pain) Eyes: + anicteric sclerae; normal pupil size ENMT: Mouth: + dry oral mucous membranes; no salivary duct abnormality (No mandibular stone visualized on exam) Neck: + submandibular swelling (right) Respiratory: normal respiratory effort, lungs clear to auscultation no stridor Cardiovascular: Rate/Rhythm: regular rate and regular rhythm Heart Sounds: + murmur (known without valvular disease per patient) Vessels: no JVD Extremities: normal capillary refill Gastrointestinal (Abdomen): Inspection/Auscultation: normal bowel sounds Percussion/Palpation: abdomen soft; abdomen nontender Skin: no rashes, warm and dry Neurologic: moves all extremities and awake; not confused Psychiatric: A+Ox3, euthymic affect Lymphatic: + cervical lymphadenopathy (right anterior) Results & Data Results & Data ([facility]) Vital Signs (Past 12 Hours) Vital Signs Temp Pulse Resp BP Pulse Ox 10/05/21 10:00 86 19 155/95 H 93 10/05/21 09:36 87 19 150/86 H 93 10/05/21 07:58 37.1 C 97 H 14 159/89 H 95 Laboratory Results Abnormal lab results 10/05/21 10/05/21 Range/Units 09:08 09:08 WBC 16.56 H (4.8-10.8) K/uL Neut # (Auto) 13.06 H (1.4-6.5) K/uL Dade # (Auto) 1.40 H (0.11-0.59) K/uL Immature Gran # (Auto) 0.07 H (0.00-0.02) K/uL Potassium 3.2 L (3.5-5.1) mmol/L Creatinine 0.52 L (0.6-1.2) mg/dl Glucose 210 H (70-99(Fasting)) mg/dl AST 10 L (13-39) U/L Diagnostic Findings CT OF THE NECK WITH IV CONTRAST CLINICAL HISTORY: pain, right submandibular swelling, dysphagia COMPARISON STUDY: No previous studies for comparison. TECHNIQUE: Following IV administration of 94 mL of Optiray, helical axial images of the neck were obtained. Sagittal and coronal reconstructions were viewed. Automated exposure control was utilized for the study. A dose lowering technique was utilized adhering to the principles of ALARA. CT DOSE: 346.18 mGy.cm FINDINGS: Visualized portions of the intracranial contents are unremarkable. Orbits are unremarkable. There are postoperative findings within the sinuses. Note is made of polypoid because with thickening of the sinuses, most throughout within the maxillary sinuses. Note is made of a 7 mm calculus within the mid to distal right submandibular duct shown on axial image 203 of 405. This results in asymmetric enhancement and edema of the right submandibular gland with significant dilatation of the submandibular duct which measures 8 mm in caliber. There is increased enhancement of the wall of the submandibular duct. Smaller dilated ducts within the right submandibular gland are present. Extensive adjacent inflammation is noted extending into the right aspect of the hypopharynx and supraglottic airway with effacement of the right piriform sinus and resultant moderate airway narrowing. There is approximately 50% airway narrowing. The glottis is closed. There is associated mild prevertebral edema. Infiltration extends into the anterior aspect of the neck and upper chest. Left submandibular gland is unremarkable. No drainable fluid collection is identified. In addition, there is mild asymmetric enhancement of the right parotid gland. There is significant dilatation of the right parotid duct which measures 1.2 cm in caliber. No calculus is identified although sensitivity is diminished given streak artifact from dental amalgams. There is apparent caliber change of the right parotid duct on axial image 151 of 405. This could be due to a stricture or occult mass. A 3.6 x 2.8 cm hypodense right lobe thyroid nodule is present. Visualized portions of the lung apices are clear. IMPRESSION: 1. 7 mm obstructing calculus within the mid to distal right submandibular duct. This results in marked dilatation of the right submandibular duct and ductal branches as well as asymmetric enhancement and edema of the right submandibular gland consistent with sialoadenitis. Extensive associated inflammation, including mild prevertebral edema, and effacement of the right hypopharynx and right piriform sinus with approximate 50% supraglottic airway narrowing. This degree of inflammation suggests a superimposed infectious process. ENT consultation is suggested. 2. Mild asymmetric enhancement of the right parotid gland with significant dilatation of the right parotid duct. No parotid duct calculus identified. This ductal dilatation could be due to an occult mass, stricture or calculus. 3. Postoperative findings within the sinuses. Moderate mucosal thickening of the sinuses, most pronounced within the maxillary sinuses. 4. 3.6 x 2.8 cm right lobe thyroid nodule. Medications Administered ER medications given: Morphine 4 mg IV Ondansetron 4 mg IV Unasyn 3 g IV Morphine 4 mg IV LR 500 mL bolus Code Status & VTE Plan Code Status Full VTE Prophylaxis Plan VTE Prophylaxis will be ordered: No PG Care Time/CCT Total # of Minutes Spent Total Time Spent with Patient: Total time spent is greater than 50% in coordination of care (as documented) at patient's floor/unit and/or counseling patient: Coding Level of Care Code 56967 Initial Inpt Care Lvl 2 Diagnoses Type 2 diabetes mellitus E11.9 Asthma J45.909 Hyperlipidemia E78.5 Hypertension I10 Thyroid nodule E04.1 Sialoadenitis of submandibular gland K11.20
[2021-10-05] MEDS ORDERED: KETOROLAC TROMETHAMINE 15 MG/ML VIAL IV STA (11:54)
[2021-10-05] MEDS ORDERED: GLUCAGON FOR INJ 1 MG VIAL SQ PRN (11:56)
[2021-10-05] MEDS ORDERED: DEXTROSE 50% 50 ML SYRINGE IV PRN (11:56)
[2021-10-05] MEDS ORDERED: GLUCOSE 40% GEL 15 GM TUBE PO PRN (11:56)
[2021-10-05] MEDS ORDERED: GLUCOSE 10 TABS/TUBE PO PRN (11:56)
[2021-10-05] MEDS ORDERED: CARBOHYDRATES FOR HYPOGLYCEMIA PO PRN (11:56)
[2021-10-05] MEDS ORDERED: ACETAMINOPHEN 1000 MG/100 ML IV IV ONE (12:02)
[2021-10-05] MEDS ORDERED: LACTATED RINGER'S 1,000 ML IV ONE (12:04)
[2021-10-05] MEDS ORDERED: ACETAMINOPHEN 1,000 MG/100 ML VIAL IV STA (12:09)
[2021-10-05] MEDS ORDERED: ONDANSETRON INJ 2 MG/ML 2 ML VIAL IV PRN (14:43)
[2021-10-05] MEDS: LACTATED RINGER'S 1,000 ML IV SCH ×2 (16:18→23:26)
[2021-10-05] MEDS: ACETAMINOPHEN 1,000 MG/100 ML VIAL IV PRN (16:40)
[2021-10-05] MEDS: AMPICILLIN/SULBACTAM SOD 3,000 MG in 0.9 % SODIUM CHLORIDE 100 ML IV SCH ×2 (17:53→23:32)
[2021-10-05] MEDS: INSULIN ASPART PER UNIT SC SCH ×2 (18:00→21:53)
[2021-10-05] MEDS: KETOROLAC TROMETHAMINE 15 MG/ML VIAL IV PRN (19:33)
[2021-10-05] MEDS: FAMOTIDINE 20 MG in SYRINGE 3 ML IV SCH (21:07)
[2021-10-05] MEDS ORDERED: Nursing to Pharmacy Communication SCH (21:30)
[2021-10-05] MEDS ORDERED: amLODIPine BESYLATE 5 MG TAB PO ONE (22:20)
[2021-10-05] MEDS: MoRPHine SULFATE 4 MG/ML 1 ML CARP\\VIAL IV PRN (23:28)
[2021-10-06] MEDS: INSULIN ASPART PER UNIT SC SCH ×4 (00:40→18:17)
[2021-10-06] MEDS: ACETAMINOPHEN 1,000 MG/100 ML VIAL IV PRN ×3 (01:17→22:53)
[2021-10-06] MEDS: KETOROLAC TROMETHAMINE 15 MG/ML VIAL IV PRN ×4 (01:45→23:15)
[2021-10-06] MEDS: LACTATED RINGER'S 1,000 ML IV SCH ×4 (04:38→21:00)
[2021-10-06] MEDS: AMPICILLIN/SULBACTAM SOD 3,000 MG in 0.9 % SODIUM CHLORIDE 100 ML IV SCH ×4 (04:39→22:24)
[2021-10-06] MEDS ORDERED: INSULIN ASPART PER UNIT SC SCH (06:00)
[2021-10-06] MEDS: MoRPHine SULFATE 4 MG/ML 1 ML CARP\\VIAL IV PRN (06:20)
[2021-10-06 06:44] LABS: Hematocrit (blood only) 37.1 % (37-47); Mean Corpuscular Hemoglobin 27.3 pg (25-34); Mean Corpuscular Hgb Conc 32.3 g/dL (32-36); Mean Corpuscular Volume 84.3 fL (80-100); Mean Platelet Volume 9.7 fL (7.4-10.4); Platelet Count 312 K/uL (130-400); RDW Coefficient of Variation 12.9 % (11.5-14.5); RDW Standard Deviation 39.3 fL (36.4-46.3); White Blood Count 12.16 K/uL (4.8-10.8)
[2021-10-06 07:03] LABS: Calcium 9.3 mg/dl (8.5-10.1); Creatinine Clr Calc Pharmacy 109.7 ml/min; Est GFR (African American) 126.3 ml/min; Potassium 3.2 mmol/L (3.5-5.1)
[2021-10-06 07:05] LABS: Estimated Average Glucose 183 mg/dl
[2021-10-06 07:17] LABS: Basophils # (auto) 0.03 K/uL (0-0.2); Basophils % (auto) 0.2 %; Eosinophils # (auto) 0.09 K/uL (0-0.5); Eosinophils % (auto) 0.7 %; Immature Granulocytes # (auto) 0.04 K/uL (0.00-0.02); Immature Granulocytes % (auto) 0.3 %; Lymphocytes # (auto) 1.65 K/uL (1.2-3.4); Lymphocytes % (auto) 13.6 %; Monocytes # (auto) 1.12 K/uL (0.11-0.59); Monocytes % (auto) 9.2 %; Neutrophils # (auto) 9.23 K/uL (1.4-6.5)
[2021-10-06] MEDS: FAMOTIDINE 20 MG in SYRINGE 3 ML IV SCH (07:37)
[2021-10-06] MEDS ORDERED: hydroCHLOROthiazide 25 MG TAB PO STA (08:00)
--- NOTE | 2021-10-06 08:38 | ENT Consultation ---
Date of Consultation October 06, 2021 Assessment & Plan (1) Sialoadenitis of submandibular gland: Acute sialoadenitis due to large stone, too large for silo endoscopy. It is also too proximal and not palpable for removal through the oral cavity. Significant swelling, minimal improvement to none after 1 day of antibiotics. I discussed excision versus incision and drainage of submandibular gland. Would definitely prefer excision. She would like to try another 24 hours of IV antibiotics. Can also add steroids to diminish the swelling. I will reevaluate her this afternoon, if no improvement will schedule for excision of right submandibular gland tomorrow. 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 It would always go down. The swelling started 3 days ago and progressed and did not go down this time. CT scan showed significant swelling and edema and 7 mm stone blocking the submandibular duct. Admitted for IV antibiotics. Allergies Allergy/AdvReac Type Severity Reaction Status Date / Time No Known Drug Allergies Allergy Unknown Verified 10/05/21 22:25 Home Medications Medication Instructions Recorded Confirmed Type aspirin 81 mg tablet,delayed 81 mg PO DAILY 06/11/19 10/05/21 History release fluticasone furoate 200 1 puffs INH DAILY PRN 06/11/19 10/05/21 History mcg-vilanterol 25 mcg/dose inhalation powder (Breo Ellipta) amlodipine 10 mg tablet 10 mg PO DAILY 10/05/21 10/05/21 History irbesartan 300 1 tab PO DAILY 10/05/21 10/05/21 History mg-hydrochlorothiazide 12.5 mg tablet metformin 1,000 mg tablet 1,000 mg PO BID 10/05/21 10/05/21 History rosuvastatin 40 mg tablet 40 mg PO DAILY 10/05/21 10/05/21 History Patient History Medical History Anemia Asthma Heart murmur Hyperlipidemia Hypertension Thyroid nodule Type 2 diabetes mellitus Surgical History History of breast surgery 2005 - Fibroadenoma removed left breast 2011 - Fibroadenoma removed left breast History of section 09/25/98, 12/09/02 History of left mastectomy 11/22/12 (simple nipple sparing with implant reconstruction by Dr. Moss) History of lumpectomy 05/13/19 - Right Breast Family History Mother No problems noted. Father , Passed age 56 of [place] No problems noted. Sister Breast cancer, Onset Age: 40 Alive and well now Sister No problems noted. Sister No problems noted. Sister No problems noted. Sister No problems noted. Son No problems noted. Son No problems noted. 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 Childhood Exposure to Second-Hand Smoke: No Diet Comment: Does not eat pork caffeine: Yes (Occasionally - 1-2 cups of tea/day ) during the past year weight has: remained stable Dental Care, Regularly: Yes Assistive Devices: Glasses Physical Exam Constitutional: WD/WN, vitals as above Eyes: PERRL, conjunctivae normal, anicteric sclerae ENMT: Mouth: + salivary duct abnormality (Swollen Sioux's duct), + trismus and + restricted motion of mouth Neck: 5 cm right submandibular swollen, tender moderately firm mass Respiratory: normal respiratory effort, lungs clear to auscultation Cardiovascular: RRR, no murmur, no edema Results & Data ([facility]) Vital Signs (Past 12 Hours) Vital Signs Temp Pulse Pulse Resp BP Pulse Ox 10/06/21 07:44 37 C 85 20 148/75 H 92 10/06/21 02:46 37.1 C 78 20 128/66 98 10/05/21 23:27 37.4 C 83 19 168/88 H 99 10/05/21 23:06 81 10/05/21 22:00 84 10/05/21 21:45 37.8 C H 81 21 173/84 H 98
[2021-10-06] MEDS: IRBESARTAN 150 MG TAB PO SCH (09:24)
[2021-10-06] MEDS ORDERED: METOPROLOL TARTRATE 1 MG/ML VIAL IV PRN (10:29)
--- NOTE | 2021-10-06 16:15 | Hospitalist Progress Note ---
Date of Service October 06, 2021 Assessment & Plan (1) Sialoadenitis of submandibular gland: Plan: Unasyn 3 g IV every 6 hourly Copious intravenous fluids Pain control with acetaminophen first-line, Toradol second line, morphine third line No stridor to suggest airway compromise. N.p.o. after midnight Consulted by ENT Going to the OR (2) Type 2 diabetes mellitus: Plan: Patient reports HbA1c 7-8. NovoLog: Goal BSG Range: Low 100 mg/dL, High 140 mg/dL Correction Factor: 45 mg/dL/unit No carb coverage BSGs ACHS if eating, q6h if npo (3) Asthma: Plan: Patient only uses inhaler as needed. No wheezing on exam to suggest acute exacerbation. (4) Hyperlipidemia: Plan: While n.p.o. we will hold her rosuvastatin (5) Hypertension: Plan: Fairly controlled Started on as needed Lopressor Continue home rate (6) Thyroid nodule: Plan: Patient reports this is previously noted and had a biopsy 2 years ago. Follow- up with outpatient PCP to make sure it has not grown in size. Plan: Going to the OR tomorrow Admission and Anticipated Discharge Date Admission Date: October 05, 2021 Subjective Pain and bilateral submandibular area Review of Systems Review of Systems: General: No malaise no weakness Neck: No tenderness no pain HEENT: Pain at bilateral submandibular area Chest: No chest pain, no palpitation GI: Not distended, no nausea no vomiting Extremities: No edema no tenderness Neurology: No headache no weakness Psychiatric: No depression no anxiety Physical Exam Constitutional: WD/WN, vitals as above + acute distress (Right throat pain) Eyes: + anicteric sclerae; normal pupil size ENMT: Mouth: + dry oral mucous membranes; no salivary duct abnormality (No mandibular stone visualized on exam) Neck: + submandibular swelling (right) Respiratory: normal respiratory effort, lungs clear to auscultation no stri emelia Cardiovascular: Rate/Rhythm: regular rate and regular rhythm Heart Sounds: + murmur (known without valvular disease per patient) Vessels: no JVD Extremities: normal capillary refill Gastrointestinal (Abdomen): Inspection/Auscultation: normal bowel sounds Percussion/Palpation: abdomen soft; abdomen nontender Skin: no rashes, warm and dry Neurologic: moves all extremities and awake; not confused Psychiatric: A+Ox3, euthymic affect Lymphatic: + cervical lymphadenopathy (right anterior) Results & Data Results & Data ([facility]) Vital Signs (Past 12 Hours) Vital Signs Temp Pulse Resp BP Pulse Ox 10/06/21 11:27 39.5 C H 94 H 18 153/70 H 97 10/06/21 07:44 37 C 85 20 148/75 H 92 PG Care Time/CCT Total # of Minutes Spent Total Time Spent with Patient: Total time spent is greater than 50% in coordination of care (as documented) at patient's floor/unit and/or counseling patient: Coding Level of Care Code 51632 Subseq Hosp Care Lvl 2 Diagnoses Sialoadenitis of submandibular gland K11.20 Type 2 diabetes mellitus E11.9 Diabetes mellitus extermination inspector insulin use: without [facility] use Asthma J45.909 Hyperlipidemia E78.5 Hypertension I10 Thyroid nodule E04.1 (1) Type 2 diabetes mellitus Diabetes mellitus [facility] insulin use: without [facility] use
[2021-10-06] MEDS: amLODIPine BESYLATE 5 MG TAB PO SCH (21:00)
[2021-10-07] MEDS: INSULIN ASPART PER UNIT SC SCH ×4 (00:30→19:40)
[2021-10-07] MEDS: LACTATED RINGER'S 1,000 ML IV SCH ×3 (02:39→18:22)
[2021-10-07] MEDS: AMPICILLIN/SULBACTAM SOD 3,000 MG in 0.9 % SODIUM CHLORIDE 100 ML IV SCH ×4 (05:45→23:36)
--- NOTE | 2021-10-07 08:08 | Anesthesiology Consultation ---
Date of Service October 07, 2021 Assessment & Plan (1) Encounter for pre-operative examination: Chart Review Chart Review: entry level finance initiated History Surgery Operation Date: 10/07/21 07:00 Proposed Procedures p Right Submandibular Gland Excision - Luz Maria Warren MD Height/Weight Height: 5 ft 2 in Weight: 61.5 kg Allergies Allergy/AdvReac Type Severity Reaction Status Date / Time No Known Drug Allergies Allergy Unknown Verified 10/05/21 22:25 Medications Home Medications Medication Instructions Recorded Confirmed Last Taken aspirin 81 mg tablet,delayed 81 mg PO DAILY 06/11/19 10/05/21 Unknown release fluticasone furoate 200 1 puffs INH DAILY PRN 06/11/19 10/05/21 Unknown mcg-vilanterol 25 mcg/dose inhalation powder (Breo Ellipta) amlodipine 10 mg tablet 10 mg PO DAILY 10/05/21 10/05/21 Unknown irbesartan 300 1 tab PO DAILY 10/05/21 10/05/21 Unknown mg-hydrochlorothiazide 12.5 mg tablet metformin 1,000 mg tablet 1,000 mg PO BID 10/05/21 10/05/21 Unknown rosuvastatin 40 mg tablet 40 mg PO DAILY 10/05/21 10/05/21 Unknown Active Medications Generic Name Dose Route Start Last Admin Trade Name Freq PRN Reason Stop Dose Admin Amlodipine Besylate 10 mg 10/06/21 21:00 10/06/21 21:00 Amlodipine Besylate 5 Mg Tab PO 11/05/21 20:59 10 mg HS RENETTA Administration Ampicillin Sodium/Sulbactam 108 mls @ 200 mls/hr 10/05/21 17:25 10/07/21 06:40 Sodium 3,000 mg/ Sodium IV 10/15/21 17:24 0 mls/hr Chloride Q6H RENETTA Infusion Protocol Acetaminophen 1,000 mg in 100 mls @ 400 mls/hr 10/05/21 14:43 10/06/21 23:24 Ofirmev IV 10/08/21 14:42 Infused Q8H PRN Infusion Pain or Fever Lactated Ringer's 1,000 mls @ 200 mls/hr 10/05/21 15:30 10/07/21 06:41 Lr IV 11/04/21 15:29 0 mls/hr .Q5H RENETTA Infusion Famotidine 20 mg/ Syringe 5 mls @ 2.5 mls/min 10/05/21 20:15 10/06/21 07:37 IV 11/04/21 20:14 2.5 mls/min DAILY RENETTA Administration Insulin Aspart 0 units 10/06/21 00:00 10/07/21 06:30 Insulin Aspart Per Unit SC 11/05/21 00:00 Not Given Q6 RENETTA Irbesartan 300 mg 10/06/21 09:00 10/06/21 09:24 Irbesartan 150 Mg Tab PO 11/05/21 08:59 300 mg QAM RENETTA Administration Ketorolac Tromethamine 15 mg 10/05/21 14:43 10/06/21 23:15 Ketorolac Tromethamine 15 Mg/Ml Vial IV 10/10/21 14:42 15 mg Q6H PRN Administration Pain Morphine Sulfate 4 mg 10/05/21 14:43 10/06/21 06:20 Morphine Sulfate 4 Mg/Ml 1 Ml Carp\Vial IV 10/19/21 14:42 4 mg Q4H PRN Administration Pain Past Medical History Medical History Anemia Asthma Heart murmur Hyperlipidemia Hypertension Thyroid nodule Type 2 diabetes mellitus Past Family History Family History Mother No problems noted. Father , Passed age 56 of [place] No problems noted. Sister Breast cancer, Onset Age: 40 Alive and well now Sister No problems noted. Sister No problems noted. Sister No problems noted. Sister No problems noted. Son No problems noted. Son No problems noted. Past Surgical History Surgical History History of breast surgery 2005 - Fibroadenoma removed left breast 2011 - Fibroadenoma removed left breast History of section 09/25/98, 12/09/02 History of left mastectomy 11/22/12 (simple nipple sparing with implant reconstruction by Dr. Moss) History of lumpectomy 05/13/19 - Right Breast Social History Smoking Status: Never smoker Hx Alcohol Use: No Hx Substance Use: No Physical Exam Vital Signs Last Vital Signs Temp 98.4 F 10/07/21 03:40 Pulse 77 10/07/21 03:40 Resp 18 10/07/21 03:40 BP 118/60 10/07/21 03:40 Pulse Ox 96 10/07/21 03:40 Testing Laboratory Results 10/06/21 06:22 10/06/21 06:22 Hemoglobin A1c 8.0 % (4.5-5.6) H 10/06/21 06:22 10/07/21 10/07/21 10/07/21 07:39 06:27 00:21 POC Glucose 137 H 138 H 130 H Laboratory Tests 10/05/21 09:08 SARS-CoV-2, RNA, NAAT NEGATIVE
[2021-10-07] MEDS ORDERED: ENOXAPARIN INJ 40 MG/0.4 ML SYR SQ SCH (08:45)
[2021-10-07] MEDS: ACETAMINOPHEN 1,000 MG/100 ML VIAL IV PRN ×2 (09:20→19:36)
[2021-10-07] MEDS: ENOXAPARIN INJ 40 MG/0.4 ML SYR SQ SCH (09:48)
[2021-10-07] MEDS: IRBESARTAN 150 MG TAB PO SCH (09:53)
[2021-10-07] MEDS: MoRPHine SULFATE 4 MG/ML 1 ML CARP\\VIAL IV PRN (12:55)
[2021-10-07] MEDS ORDERED: LIDOCAINE 2%/EPINEPHRINE 1:100,000 20ML ONE (14:01)
[2021-10-07] MEDS ORDERED: PROPOFOL IV EMULSION 10 MG/ML 20 ML VIAL IV ONE (14:03)
[2021-10-07] MEDS ORDERED: DEXAMETHASONE SOD INJ 4 MG/ML VIAL ONE (14:03)
[2021-10-07] MEDS ORDERED: GLYCOPYRROLATE 0.2 MG/ML VIAL ONE (14:03)
[2021-10-07] MEDS ORDERED: fentaNYL citrate 100 MCG/2 ML VIAL ONE ×3 (14:03→17:10)
[2021-10-07] MEDS ORDERED: MIDAZOLAM HCL 1 MG/ML 2ML VIAL ONE (14:03)
[2021-10-07] MEDS ORDERED: LIDOCAINE 2% 2 ML VIAL/AMP(20MG/ML) INFIL ONE (14:03)
[2021-10-07] MEDS ORDERED: ONDANSETRON INJ 2 MG/ML 2 ML VIAL ONE (14:03)
[2021-10-07] MEDS ORDERED: NEOSTIGMINE METHYLSULFATE 1 MG/ML 10ML VIAL ONE (14:03)
--- NOTE | 2021-10-07 14:18 | History & Physical Bridge Note ---
Date of Service October 07, 2021 History & Physical Bridge Note I have examined the patient, reviewed the History & Physical and in the interval since the performance of the History & Physical I have noted the following changes of clinical significance: no changes noted
--- NOTE | 2021-10-07 16:53 | Operative Report ---
PG Post Operative Report Pre & Post Diagnosis Operation Date: 10/07/21 07:00 Pre-Op Diagnosis: ACUTE BACTERIAL DIALOADENITIS, SUPRAOLITTIC AIRWAY Post-Op Diagnosis: ACUTE BACTERIAL DIALOADENITIS, SUPRAOLITTIC AIRWAY I identified the patient and participated in the time-out.: Yes Procedure Operation Date: 10/07/21 07:00 Actual Procedures p Right Submandibular Gland Excision(Right) - Luz Maria Warren MD Surgeon Luz Maria Warren MD Corporate Security Officer None Estimated Blood Loss 20 Findings Consistent with Post-Op Diagnosis Submandibular gland and stone Specimens Submandibular gland and stone Drains Zaina Anesthesia Type General Complications None Description of Procedure She was brought to the operating room, properly identified, prepped and draped in the usual sterile manner after general endotracheal anesthesia. Airway was noted to be patent. The right neck was prepped with ChloraPrep and draped in the usual sterile manner. The incision line was 2 fingerbreadths below the angle of the mandible following the skin crease. This was injected with 2% Xylocaine with 1-100,000 strength epinephrine. Incision was made using the 15 blade and was carried down through the skin and subcutaneous layer and then the platysma layer exposing the fascia around the submandibular gland. Blunt sharp dissection was performed around the gland using the Metzenbaum scissors and the hemostat. Posteriorly the vein was clamped divided and tied using silk ties. The facial artery was also identified, clamped divided and tied using silk ties. The artery was encountered another time anterior to the gland anterior superiorly and was again clamped divided and tied. Dissection was continued inferiorly and medial to the gland and then posteriorly and then anteriorly until the duct was encountered. A stone was palpated in the duct. Mylohyoid was retracted anteriorly and the duct was clamped divided and tied. Superiorly the gland was from the facial artery and then from the lingual nerve c lamping and dividing the branch of the nerve into the submandibular gland/submandibular ganglion. The nerve then retracted superiorly. Digastric tendon was identified. Hypoglossal nerve was not visualized. The wound was irrigated copious amounts of saline. Bleeders were controlled using the bipolar cautery. Zaina drain was placed in the depths of the wound. Incision was closed with interrupted 3-0 Vicryl sutures on the platysma layer, interrupted 3- 0 Vicryl sutures on the subcutaneous layer, and then 5-0 plain on the skin. Drain was sewn in place. Light pressure dressing was placed. She tolerated procedure well and was taken recovery area in satisfactory condition. I attest to the content of the Intraoperative Record and any orders documented therein. Any exceptions are noted below.
[2021-10-07] MEDS ORDERED: ATROPINE SULFATE 0.1 MG/ML 10ML SYR IV PRN (17:09)
[2021-10-07] MEDS ORDERED: ePHEDrine sulfate 50 MG/ML AMP IV PRN (17:09)
[2021-10-07] MEDS ORDERED: ONDANSETRON INJ 2 MG/ML 2 ML VIAL IV PRN (17:09)
[2021-10-07] MEDS: fentaNYL citrate 100 MCG/2 ML VIAL IV PRN ×2 (17:13→17:18)
--- NOTE | 2021-10-07 17:29 | Anesthesiology Progress Note ---
Date of Service October 07, 2021 Anesthesia Post Procedure Vital Signs Vital Signs: Temp Pulse Pulse Pulse Resp BP Pulse Ox 10/07/21 17:05 98.2 F 76 17 134/67 94 10/07/21 16:55 79 17 145/76 H 93 10/07/21 16:45 83 18 149/80 H 97 10/07/21 16:39 96.8 F L 83 14 148/72 H 98 10/07/21 13:45 98.4 F 77 16 132/71 90 10/07/21 12:12 99.0 F 81 16 126/88 90 10/07/21 11:55 90 10/07/21 11:02 122/65 10/07/21 09:05 99.1 F 87 16 140/72 96 10/07/21 03:40 98.4 F 77 18 118/60 96 10/06/21 23:34 100.2 F H 93 H 16 134/64 97 10/06/21 23:00 100 H 10/06/21 19:34 99.7 F H 82 20 131/86 98 Pain Intensity Bilateral Throat: Pain Intensity: 0 Transfer of Care Handoff Completed per policy Notes Mental Status: alert / awake / arousable and participated in evaluation Patient Amnestic to Procedure: Yes Nausea / Vomiting: adequately controlled Pain: adequately controlled Airway Patency, RR, SpO2: stable & adequate BP & HR: stable & adequate Hydration State: stable & adequate Anesthetic Complications: no major complications apparent and Pt Satisfied with anesthetic care
--- NOTE | 2021-10-07 17:30 | Hospitalist Progress Note ---
Date of Service October 07, 2021 Assessment & Plan (1) Sialoadenitis of submandibular gland: Plan: In the setting of diabetes and, poor health and submandibular gland stone on the right side Unasyn 3 g IV every 6 hourly Copious intravenous fluids Pain control with acetaminophen first-line, Toradol second line, morphine third line No stridor to suggest airway compromise. s/p Right Submandibular Gland Excision(Right) today (2) Type 2 diabetes mellitus: Plan: A1c of 8 NovoLog: Goal BSG Range: Low 100 mg/dL, High 140 mg/dL Correction Factor: 45 mg/dL/unit No carb coverage BSGs ACHS if eating, q6h if npo (3) Asthma: Plan: Patient only uses inhaler as needed. No wheezing on exam to suggest acute exacerbation. (4) Hyperlipidemia: Plan: While n.p.o. we will hold her rosuvastatin (5) Hypertension: Plan: Fairly controlled Started on as needed Lopressor Continue home rate (6) Thyroid nodule: Plan: Patient reports this is previously noted and had a biopsy 2 years ago. Follow- up with outpatient PCP to make sure it has not grown in size. Plan: Going to the OR tomorrow Admission and Anticipated Discharge Date Admission Date: October 05, 2021 Subjective Feels better today Physical Exam Constitutional: WD/WN, vitals as above + acute distress (Right throat pain) Eyes: + anicteric sclerae; normal pupil size ENMT: Mouth: + dry oral mucous membranes; no salivary duct abnormality (No mandibular stone visualized on exam) Neck: + submandibular swelling (right) Respiratory: normal respiratory effort, lungs clear to auscultation no stridor Cardiovascular: Rate/Rhythm: regular rate and regular rhythm Heart Sounds: + murmur (known without valvular disease per patient) Vessels: no JVD Extremities: normal capillary refill Gastrointestinal (Abdomen): Inspection/Auscultation: normal bowel sounds Percussion/Palpation: abdomen soft; abdomen nontender Skin: no rashes, warm and dry Neurologic: moves all extremities and awake; not confused Psychiatric: A+Ox3, euthymic affect Lymphatic: + cervical lymphadenopathy (right anterior) Results & Data Results & Data ([facility]) Vital Signs (Past 12 Hours) Vital Signs Temp Pulse Pulse Pulse Resp BP Pulse Ox 10/07/21 17:05 36.8 C 76 17 134/67 94 05/06/22 16:55 79 17 145/76 H 93 10/07/21 16:45 83 18 149/80 H 97 10/07/21 16:39 36.0 C L 83 14 148/72 H 98 10/07/21 13:45 36.9 C 77 16 132/71 90 10/07/21 12:12 37.2 C 81 16 126/88 90 10/07/21 11:55 90 10/07/21 11:02 122/65 10/07/21 09:05 37.3 C 87 16 140/72 96 PG Care Time/CCT Total # of Minutes Spent Total Time Spent with Patient: Total time spent is greater than 50% in coordination of care (as documented) at patient's floor/unit and/or counseling patient: Coding Level of Care Code 38383 Subseq Hosp Care Lvl 3 Diagnoses Sialoadenitis of submandibular gland K11.20 Type 2 diabetes mellitus E11.9 Diabetes mellitus intermission coordinator insulin use: without intermission coordinator use Asthma J45.909 Hyperlipidemia E78.5 Hypertension I10 Thyroid nodule E04.1 (1) Type 2 diabetes mellitus Diabetes mellitus intermission coordinator insulin use: without intermission coordinator use
[2021-10-07] MEDS: FAMOTIDINE 20 MG in SYRINGE 3 ML IV SCH (17:53)
[2021-10-07] MEDS: amLODIPine BESYLATE 5 MG TAB PO SCH (19:44)
[2021-10-08] MEDS: LACTATED RINGER'S 1,000 ML IV SCH ×5 (00:59→13:29)
[2021-10-08] MEDS: AMPICILLIN/SULBACTAM SOD 3,000 MG in 0.9 % SODIUM CHLORIDE 100 ML IV SCH ×4 (05:35→22:42)
[2021-10-08 07:10] LABS: Eosinophils # (auto) 0.01 K/uL (0-0.5); Eosinophils % (auto) 0.1 %; Hematocrit (blood only) 31.6 % (37-47); Hemoglobin 10.1 g/dL (12.0-16.0); Immature Granulocytes # (auto) 0.07 K/uL (0.00-0.02); Immature Granulocytes % (auto) 0.8 %; Lymphocytes # (auto) 1.07 K/uL (1.2-3.4); Lymphocytes % (auto) 11.5 %; Mean Corpuscular Hemoglobin 26.5 pg (25-34); Mean Corpuscular Volume 82.9 fL (80-100); Mean Platelet Volume 9.5 fL (7.4-10.4); Monocytes # (auto) 0.54 K/uL (0.11-0.59); Monocytes % (auto) 5.8 %; Neutrophils # (auto) 7.58 K/uL (1.4-6.5); Neutrophils % (auto) 81.8 %; Platelet Count 383 K/uL (130-400); RDW Coefficient of Variation 12.7 % (11.5-14.5); RDW Standard Deviation 38.4 fL (36.4-46.3); Red Blood Count 3.81 M/uL (4.2-5.4); White Blood Count 9.27 K/uL (4.8-10.8)
--- NOTE | 2021-10-08 07:43 | Electrocardiogram Report ---
Test Reason : Blood Pressure : / mmHG Vent. Rate : 086 BPM Atrial Rate : 086 BPM P-R Int : 174 ms QRS Dur : 100 ms QT Int : 366 ms P-R-T Axes : 063 011 051 degrees QTc Int : 437 ms Normal sinus rhythm Incomplete right bundle branch block Cannot rule out Anterior infarct , age undetermined Abnormal ECG When compared with ECG of 08-DEC-2016 11:20, No significant change was found Confirmed by Mack See ([id number]) on 10/08/2021 7:43:28 AM Referred By: REFERRED SELF Confirmed By:Mack See
--- NOTE | 2021-10-08 07:58 | Ears,Nose,Throat Progress Note ---
Date of Service October 08, 2021 Assessment & Plan (1) Sialoadenitis of submandibular gland: Plan: Status post excision right submandibular gland and stone, doing well, normal postop course, advance diet as tolerated. I will remove drain Sunday a.m. May need to be off work for 2 weeks to recover. Admission and Anticipated Discharge Date Admission Date: October 05, 2021 Subjective Less pain, still swollen, tolerating liquids and Jell-O. No difficulty swallowing. Physical Exam Constitutional: WD/WN, vitals as above ENMT: Mouth: + oropharynx abnormality (Less swollen,) and + trismus (Trismus is less) Neck: Drain in place, submental edema present, Results & Data ([facility]) Vital Signs (Past 12 Hours) Vital Signs Temp Pulse Pulse Resp BP Pulse Ox 10/08/21 02:57 36.6 C 67 18 128/79 95 10/08/21 02:33 75 10/08/21 00:16 36.5 C 72 16 129/75 95
[2021-10-08] MEDS: FAMOTIDINE 20 MG in SYRINGE 3 ML IV SCH (09:17)
[2021-10-08] MEDS: INSULIN ASPART PER UNIT SC SCH ×4 (09:19→22:41)
[2021-10-08] MEDS: IRBESARTAN 150 MG TAB PO SCH (09:19)
[2021-10-08] MEDS: ENOXAPARIN INJ 40 MG/0.4 ML SYR SQ SCH (10:44)
[2021-10-08] MEDS ORDERED: FLUTICASONE/VILANTEROL 200/25MCG 14 PUFFS/INHALER INH SCH (10:53)
[2021-10-08] MEDS ORDERED: ASPIRIN 81 MG ECTAB PO SCH (11:00)
[2021-10-08] MEDS ORDERED: NON-FORMULARY MEDICATION (Irbesartan-Hydrochlorothiazide 300-12.5 mg tablet) PO SCH (11:00)
[2021-10-08] MEDS ORDERED: ROSUVASTATIN CALCIUM 20 MG TAB PO SCH (11:00)
[2021-10-08] MEDS: hydroCHLOROthiazide 25 MG TAB PO SCH (11:23)
--- NOTE | 2021-10-08 13:44 | Hospitalist Progress Note ---
Date of Service October 08, 2021 Assessment & Plan (1) Sialoadenitis of submandibular gland: Plan: s/p Right Submandibular Gland Excision(Right) on 10/07 In the setting of diabetes and, poor health and submandibular gland stone on the right side Unasyn 3 g IV every 6 hourly Stop IV fluids Pain is fairly managed Advance diet to carbohydrate controlled diet The patient has a drain possible drain removal as per ENT note on Sunday (2) Type 2 diabetes mellitus: Plan: A1c of 8 NovoLog: Goal BSG Range: Low 100 mg/dL, High 140 mg/dL Correction Factor: 45 mg/dL/unit No carb coverage BSGs ACHS if eating, q6h if npo (3) Asthma: Plan: Patient only uses inhaler as needed. No wheezing on exam to suggest acute exacerbation. (4) Hyperlipidemia: Plan: While n.p.o. we will hold her rosuvastatin (5) Hypertension: Plan: Fairly controlled Started on as needed Lopressor Resume home regimen (6) Thyroid nodule: Plan: Patient reports this is previously noted and had a biopsy 2 years ago. Follow- up with outpatient PCP to make sure it has not grown in size. Plan: Going to the OR tomorrow Admission and Anticipated Discharge Date Admission Date: October 05, 2021 Subjective Feels significantly better, continue to Diet controlled diet Physical Exam Constitutional: WD/WN, vitals as above + acute distress (Right throat pain) Eyes: + anicteric sclerae; normal pupil size ENMT: Mouth: + dry oral mucous membranes; no salivary duct abnormality (No mandibular stone visualized on exam) Neck: + submandibular swelling (right) Respiratory: normal respiratory effort, lungs clear to auscultation no stridor Cardiovascular: Rate/Rhythm: regular rate and regular rhythm Heart Sounds: + murmur (known without valvular disease per patient) Vessels: no JVD Extremities: normal capillary refill Gastrointestinal (Abdomen): Inspection/Auscultation: normal bowel sounds Percussion/Palpation: abdomen soft; abdomen nontender Skin: no rashes, warm and dry Neurologic: moves all extremities and awake; not confused Psychiatric: A+Ox3, euthymic affect Lymphatic: + cervical lymphadenopathy (right anterior) Results & Data Results & Data ([facility]) Vital Signs (Past 12 Hours) Vital Signs Temp Pulse Pulse Resp BP Pulse Ox 10/08/21 10:55 37.4 C 79 16 142/80 H 92 10/08/21 08:00 37.0 C 85 16 134/74 89 L 10/08/21 02:57 36.6 C 67 18 128/79 95 10/08/21 02:33 75 PG Care Time/CCT Total # of Minutes Spent Total Time Spent with Patient: Total time spent is greater than 50% in coordination of care (as documented) at patient's floor/unit and/or counseling patient: Coding Level of Care Code 13405 Subseq Hosp Care Lvl 2 Diagnoses Sialoadenitis of submandibular gland K11.20 Type 2 diabetes mellitus E11.9 Diabetes mellitus long distance billing operator insulin use: without long distance billing operator use Asthma J45.909 Hyperlipidemia E78.5 Hypertension I10 Thyroid nodule E04.1 (1) Type 2 diabetes mellitus Diabetes mellitus skilled nursing insulin use: without skilled nursing use
[2021-10-08] MEDS: metFORMIN HCL 500 MG TAB PO SCH (16:53)
[2021-10-08] MEDS: amLODIPine BESYLATE 5 MG TAB PO SCH (19:01)
[2021-10-08] MEDS ORDERED: SODIUM CHLORIDE 0.65% NA SOLN 45 ML (OCEAN) ONE (23:22)
[2021-10-09] MEDS: AMPICILLIN/SULBACTAM SOD 3,000 MG in 0.9 % SODIUM CHLORIDE 100 ML IV SCH (05:43)
[2021-10-09] MEDS: ENOXAPARIN INJ 40 MG/0.4 ML SYR SQ SCH (07:56)
[2021-10-09] MEDS: IRBESARTAN 150 MG TAB PO SCH (07:57)
[2021-10-09] MEDS: hydroCHLOROthiazide 25 MG TAB PO SCH (07:57)
[2021-10-09] MEDS: FAMOTIDINE 20 MG in SYRINGE 3 ML IV SCH (08:00)
[2021-10-09] MEDS: INSULIN ASPART PER UNIT SC SCH ×4 (08:08→20:56)
[2021-10-09] MEDS: LACTOBACILLUS ACIDOPHILUS 1 GM PACK PO SCH ×2 (11:36→16:29)
[2021-10-09] MEDS ORDERED: ACETAMINOPHEN 325 MG TAB PO PRN (12:14)
[2021-10-09] MEDS ORDERED: DIPHENOXYLATE/ATROPINE 2.5/0.025MG TAB PO PRN (13:02)
--- NOTE | 2021-10-09 13:02 | Hospitalist Progress Note ---
Date of Service October 09, 2021 Assessment & Plan (1) Sialoadenitis of submandibular gland: Plan: s/p Right Submandibular Gland Excision(Right) on 10/07 In the setting of diabetes and, poor health and submandibular gland stone on the right side Stop Unasyn, started on Augmentin, patient complains of diarrhea, add probiotic, Lomotil as needed, most likely diarrhea is the medication side effect (2) Type 2 diabetes mellitus: Plan: A1c of 8 NovoLog: Goal BSG Range: Low 100 mg/dL, High 140 mg/dL Correction Factor: 45 mg/dL/unit No carb coverage BSGs ACHS if eating, q6h if npo (3) Asthma: Plan: Patient only uses inhaler as needed. No wheezing on exam to suggest acute exacerbation. (4) Hyperlipidemia: Plan: While n.p.o. we will hold her rosuvastatin (5) Hypertension: Plan: Fairly controlled Started on as needed Lopressor Resume home regimen (6) Thyroid nodule: Plan: Patient reports this is previously noted and had a biopsy 2 years ago. Follow- up with outpatient PCP to make sure it has not grown in size. (7) Diarrhea: Plan: Possibly the side effect of Unasyn Stop Unasyn started on Augmentin Started on probiotic Plan: Going to the OR tomorrow Admission and Anticipated Discharge Date Admission Date: October 05, 2021 Subjective Complains of having diarrhea, possibly medication side Physical Exam Constitutional: WD/WN, vitals as above + acute distress (Right throat pain) Eyes: + anicteric sclerae; normal pupil size ENMT: Mouth: + dry oral mucous membranes; no salivary duct abnormality (No mandibular stone visualized on exam) Neck: + submandibular swelling (right) Respiratory: normal respiratory effort, lungs clear to auscultation no stridor Cardiovascular: Rate/Rhythm: regular rate and regular rhythm Heart Sounds: + murmur (known without valvular disease per patient) Vessels: no JVD Extremities: normal capillary refill Gastrointestinal (Abdomen): Inspection/Auscultation: normal bowel sounds Percussion/Palpation: abdomen soft; abdomen nontender Skin: no rashes, warm and dry Neurologic: moves all extremities and awake; not confused Psychiatric: A+Ox3, euthymic affect Lymphatic: + cervical lymphadenopathy (right anterior) Results & Data Results & Data ([facility]) Vital Signs (Past 12 Hours) Vital Signs Temp Pulse Resp BP Pulse Ox 10/09/21 07:05 36.6 C 77 16 135/71 92 10/09/21 01:10 130/73 PG Care Time/CCT Total # of Minutes Spent Total Time Spent with Patient: Total time spent is greater than 50% in coordination of care (as documented) at patient's floor/unit and/or counseling patient: Coding Level of Care Code 74064 Subseq Hosp Care Lvl 3 Diagnoses Sialoadenitis of submandibular gland K11.20 Type 2 diabetes mellitus E11.9 Diabetes mellitus buttermilk drier operator insulin use: without buttermilk drier operator use Asthma J45.909 Hyperlipidemia E78.5 Hypertension I10 Thyroid nodule E04.1 Diarrhea R19.7 (1) Type 2 diabetes mellitus Diabetes mellitus buttermilk drier operator insulin use: without assisted use
[2021-10-09] MEDS: AMOXICILLIN/CLAVULANATE 875 MG TAB PO SCH (16:29)
[2021-10-09] MEDS: ASPIRIN 81 MG ECTAB PO SCH (16:29)
[2021-10-09] MEDS: amLODIPine BESYLATE 5 MG TAB PO SCH (20:56)
[2021-10-09] MEDS ORDERED: ROSUVASTATIN CALCIUM 20 MG TAB PO SCH (21:00)
[2021-10-10 06:38] LABS: BUN Creatinine Ratio 24.5 (10-20); Calcium 9.1 mg/dl (8.5-10.1); Creatinine Clr Calc Pharmacy 111.9 ml/min; Est GFR (African American) 127.1 ml/min; Est GFR (Non-African American) 109.7 ml/min; Potassium 3.2 mmol/L (3.5-5.1)
[2021-10-10 06:41] LABS: Basophils # (auto) 0.04 K/uL (0-0.2); Basophils % (auto) 0.6 %; Eosinophils # (auto) 0.44 K/uL (0-0.5); Eosinophils % (auto) 6.7 %; Hematocrit (blood only) 35.1 % (37-47); Hemoglobin 11.5 g/dL (12.0-16.0); Immature Granulocytes # (auto) 0.12 K/uL (0.00-0.02); Immature Granulocytes % (auto) 1.8 %; Lymphocytes # (auto) 2.15 K/uL (1.2-3.4); Lymphocytes % (auto) 32.8 %; Mean Corpuscular Hemoglobin 27.3 pg (25-34); Mean Corpuscular Hgb Conc 32.8 g/dL (32-36); Mean Corpuscular Volume 83.4 fL (80-100); Mean Platelet Volume 9.4 fL (7.4-10.4); Monocytes # (auto) 0.82 K/uL (0.11-0.59); Monocytes % (auto) 12.5 %; Neutrophils # (auto) 2.99 K/uL (1.4-6.5); Neutrophils % (auto) 45.6 %; Nucleated RBC # (auto) 0.03 K/uL (0-0); Nucleated RBC % (auto) 0.4 %; Platelet Count 509 K/uL (130-400); RDW Coefficient of Variation 12.7 % (11.5-14.5); RDW Standard Deviation 38.3 fL (36.4-46.3); Red Blood Count 4.21 M/uL (4.2-5.4); White Blood Count 6.56 K/uL (4.8-10.8)
--- NOTE | 2021-10-10 07:47 | Ears,Nose,Throat Progress Note ---
Date of Service October 10, 2021 Assessment & Plan (1) Sialoadenitis of submandibular gland: Plan: This lady had a rather severe infection of the right submandibular gland with dilation of right Spencer's duct and stone, removed, improving. Drain removed today. Residual edema of right neck and of Rafa's duct under the tongue. Should subside. Recommend continuing Augmentin for 1 week. Recommend work excuse for 2 weeks. Recheck with me in 2 weeks in the office. I will be away at the meeting. Dr. Graham will be covering this week. 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 Has pain at level 2-3. Had diarrhea, improved after stopping Unasyn. No fever. Tolerating soft diet. Physical Exam Constitutional: WD/WN, vitals as above Eyes: PERRL, conjunctivae normal, anicteric sclerae ENMT: Mouth: + oropharynx abnormality (Still has swelling of the floor mouth at Spencer's duct) and + trismus (Mild trismus, improved, able to open mouth) Neck: Drain removed, swelling and edema subsided on the left side but still swollen on the right side, no sign of hematoma, minimal drainage Results & Data ([facility]) Vital Signs (Past 12 Hours) Vital Signs Temp Pulse Resp BP Pulse Ox 10/09/21 23:31 36.7 C 67 16 154/78 H 95
[2021-10-10] MEDS: hydroCHLOROthiazide 25 MG TAB PO SCH (08:13)
[2021-10-10] MEDS: LACTOBACILLUS ACIDOPHILUS 1 GM PACK PO SCH ×4 (08:13→17:25)
[2021-10-10] MEDS: ASPIRIN 81 MG ECTAB PO SCH (08:16)
[2021-10-10] MEDS: AMOXICILLIN/CLAVULANATE 875 MG TAB PO SCH ×2 (08:16→17:24)
[2021-10-10] MEDS: ENOXAPARIN INJ 40 MG/0.4 ML SYR SQ SCH (08:17)
[2021-10-10] MEDS: INSULIN ASPART PER UNIT SC SCH ×4 (08:21→21:07)
[2021-10-10] MEDS: IRBESARTAN 150 MG TAB PO SCH (09:15)
--- NOTE | 2021-10-10 14:35 | Hospitalist Progress Note ---
Date of Service October 10, 2021 Assessment & Plan (1) Sialoadenitis of submandibular gland: Plan: s/p Right Submandibular Gland Excision(Right) on 10/07 In the setting of diabetes and, poor health and submandibular gland stone on the right side As per ENT, patient can be discharged tomorrow, drain was removed, patient is to be discharged Augmentin for total of 2 weeks as per ENT note, discussed with the patient (2) Type 2 diabetes mellitus: Plan: A1c of 8 indicative of poorly controlled diabetes Goal BSG Range: Low 100 mg/dL, High 140 mg/dL Correction Factor: 45 mg/dL/unit Resume metformin, resume home regimen, (3) Asthma: Plan: Patient only uses inhaler as needed. No wheezing on exam to suggest acute exacerbation. (4) Hyperlipidemia: Plan: Resume statin (5) Hypertension: Plan: Started on Lopressor as needed Lopressor Resume home regimen (6) Thyroid nodule: Plan: Patient reports this is previously noted and had a biopsy 2 years ago. Follow- up with outpatient PCP to make sure it has not grown in size. 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 Has pain at level 2-3. Had diarrhea, improved after stopping Unasyn. No fever. Tolerating soft diet. Physical Exam Constitutional: WD/WN, vitals as above + acute distress (Right throat pain) Eyes: + anicteric sclerae; normal pupil size ENMT: Mouth: + dry oral mucous membranes; no salivary duct abnormality (No mandibular stone visualized on exam) Neck: + submandibular swelling (right) Respiratory: normal respiratory effort, lungs clear to auscultation no stridor Cardiovascular: Rate/Rhythm: regular rate and regular rhythm Heart Sounds: + murmur (known without valvular disease per patient) Vessels: no JVD Extremities: normal capillary refill Gastrointestinal (Abdomen): Inspection/Auscultation: normal bowel sounds Percussion/Palpation: abdomen soft; abdomen nontender Skin: no rashes, warm and dry Neurologic: moves all extremities and awake; not confused Psychiatric: A+Ox3, euthymic affect Lymphatic: + cervical lymphadenopathy (right anterior) Results & Data Results & Data ([facility]) Vital Signs (Past 12 Hours) Vital Signs Temp Pulse Resp BP Pulse Ox 10/10/21 07:51 37.0 C 71 16 157/78 H 94 PG Care Time/CCT Total # of Minutes Spent Total Time Spent with Patient: Total time spent is greater than 50% in coordination of care (as documented) at patient's floor/unit and/or counseling patient: Coding Level of Care Code 01787 Subseq Hosp Care Lvl 2 Diagnoses Sialoadenitis of submandibular gland K11.20 Type 2 diabetes mellitus E11.9 Diabetes mellitus prison insulin use: without long chain quiller tender use Asthma J45.909 Hyperlipidemia E78.5 Hypertension I10 Thyroid nodule E04.1 Diarrhea R19.7 (1) Type 2 diabetes mellitus Diabetes mellitus prison insulin use: without long chain quiller tender use
[2021-10-10 15:48] VITALS: PULSE 76
[2021-10-10] MEDS ORDERED: metFORMIN HCL 500 MG TAB PO SCH (17:00)
[2021-10-10] MEDS: metFORMIN HCL 500 MG TAB PO SCH (17:25)
[2021-10-10] MEDS: amLODIPine BESYLATE 5 MG TAB PO SCH (21:06)
[2021-10-11 07:09] VITALS: BP 152/88; TEMP 97.9; O2SAT 95
[2021-10-11] MEDS: hydroCHLOROthiazide 25 MG TAB PO SCH (08:19)
[2021-10-11] MEDS: LACTOBACILLUS ACIDOPHILUS 1 GM PACK PO SCH ×2 (08:19→12:31)
[2021-10-11] MEDS: IRBESARTAN 150 MG TAB PO SCH (08:19)
[2021-10-11] MEDS: ASPIRIN 81 MG ECTAB PO SCH (08:19)
[2021-10-11] MEDS: AMOXICILLIN/CLAVULANATE 875 MG TAB PO SCH (08:20)
[2021-10-11] MEDS: metFORMIN HCL 500 MG TAB PO SCH (08:20)
[2021-10-11] MEDS: ENOXAPARIN INJ 40 MG/0.4 ML SYR SQ SCH (08:22)
[2021-10-11] MEDS: INSULIN ASPART PER UNIT SC SCH ×2 (08:23→12:20)
--- NOTE | 2021-10-11 14:31 | Ultrasound Report ---
LEFT LOWER EXTREMITY VENOUS DOPPLER HISTORY: Acute pain and swelling of the left lower leg rule out DVT COMPARISON STUDY: None. FINDINGS: There is normal compressibility, flow, and augmentation within the left lower extremity pasquale p venous system. Incidental note is made of slow venous flow. IMPRESSION: No DVT within the left lower extremity. ACT 112: Negative or not required by law. Electronically signed by: Luis Galindo M.D. 10/11/2021 2:00 PM
--- NOTE | 2021-10-11 18:37 | Discharge Summary ---
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 She denies any fevers or chills. She reports having similar pains ongoing for the last 20 years which occur every 3 to 4 months but only last for a few hours. On this occasion she has had it for the last 3 days and has been excruciating with severity 10 out of 10. No radiation. In the ER she underwent CT imaging of the soft tissues of her neck which showed submandibular sialoadenitis with a 7 mm obstructing calculus in the mid to distal right submandibular duct, asymmetric enhancement of right parotid gland w ith significant dilatation of right parotid duct. No abscess was identified requiring draining. She was given Unasyn 3 g IV for antibiotic coverage. She is unable to tolerate oral intake at this time therefore was referred to medicine for admission ongoing management of this. Principal Diagnosis right submandibular sialoadenitis with a stone of salivary duct Discharge Exam Constitutional WD/WN, vitals as above + acute distress (Right throat pain) Eyes + anicteric sclerae; normal pupil size ENMT Mouth: + dry oral mucous membranes; no salivary duct abnormality (No mandibular stone visualized on exam) Neck + submandibular swelling (right) Respiratory normal respiratory effort, lungs clear to auscultation no stridor Cardiovascular Rate/Rhythm: regular rate and regular rhythm Heart Sounds: + murmur (known without valvular disease per patient) Vessels: no JVD Extremities: normal capillary refill Gastrointestinal (Abdomen) Inspection/Auscultation: normal bowel sounds Percussion/Palpation: abdomen soft; abdomen nontender Skin no rashes, warm and dry Neurologic moves all extremities and awake; not confused Psychiatric A+Ox3, euthymic affect Lymphatic + cervical lymphadenopathy (right anterior) Discharge Data Allergies Allergy/AdvReac Type Severity Reaction Status Date / Time No Known Drug Allergies Allergy Unknown Verified 10/05/21 22:25 Consultations 10/05/21 11:20 ED Decision to Admit Stat 10/05/21 14:43 Consult Otolaryngology (Head and Neck) Routine Procedures Performed Operation Date: 10/07/21 07:00 Actual Procedures p Right Submandibular Gland Excision(Right) - Luz Maria Warren MD Ordered Studies 10/05/21 08:47 CT soft tissue neck w con Stat 10/11/21 11:12 US venous doppler LE LT Stat Diabetes Follow up Please follow-up with primary care doctor as Hospital Course (1) Sialoadenitis of submandibular gland: Initially started on IV fluid, Unasyn, patient consulted with ENT, the patient is status post s/p Right Submandibular Gland Excision(Right) on 10/07 It is occurred in the setting of diabetes and, poor health and submandibular gland stone on the right side drain was removed on 10/10, patient discharged on 10-day course of treatment with Augmentin and to follow-up with ENT in 1 week (2) Type 2 diabetes mellitus: A1c of 8 indicative of poorly controlled diabetes Goal BSG Range: Low 100 mg/dL, High 140 mg/dL Correction Factor: 45 mg/dL/unit Resume metformin, resume home regimen, (3) Asthma: Patient only uses inhaler as needed. No wheezing on exam to suggest acute exacerbation. (4) Hyperlipidemia: Resume statin (5) Hypertension: Started on Lopressor as needed Lopressor Resume home regimen (6) Thyroid nodule: Patient reports this is previously noted and had a biopsy 2 years ago. Follow-up with outpatient PCP to make sure it has not grown in size. (7) Diarrhea: Possibly the side effect of Unasyn Stop Unasyn started on Augmentin Started on probiotic Stopped We will follow-up with ENT in 1 week Total Time Total Time Spent Total Time Spent (In Minutes): 45 min Discharge Plan Discharge Items Patient Disposition: Home - Self-Care Reason For Visit: ACUTE BACTERIAL DIALOADENITIS, SUPRAOLITTIC AIRWAY Discharge Diagnosis: Sialoadenitis acute bacterial , Activity: Resume your previous activity Lifting: Gradually increase as tolerated Bathing: No limitations Sexual Activity: When tolerated Exercise/Sports: Gradually increase as tolerated Driving/Machine Use: No limitations Weightbearing: Full weightbearing Non-emergency contact: Surgeon Call non-emergency contact if: you have any medication questions and your pain is worsening Follow-up/Referrals: Luz Maria Warren MD [Physician] - 10/19/21 1:15 pm () Sulma Pimentel MD [Primary Care Provider] - Diet: Carb Consistent or DM2 and Heart Healthy Addtl Attending Provider Instructions: please follow with surgeon in week Pending Studies at Discharge: No Stand-Alone Forms: Choose Digital, Smoking Cessation Medications and DC Order Prescriptions: New Lactobacillus acidoph-L.bulgar [Floranex] 100 million cell Granules In Packet 1 g PO TIDM Qty: 30 RF: 0 amoxicillin-pot clavulanate 875-125 mg tablet 1 tab PO BID Qty: 20 RF: 0 Continued Breo Ellipta 200-25 mcg/dose blister with device 1 puffs INH DAILY PRN (Reason: Other) RF: 0 aspirin 81 mg tablet,delayed release (DR/EC) 81 mg PO DAILY RF: 0 amlodipine 10 mg tablet 10 mg PO DAILY RF: 0 metformin 1,000 mg tablet 1,000 mg PO BID RF: 0 irbesartan-hydrochlorothiazide 300-12.5 mg tablet 1 tab PO DAILY RF: 0 rosuvastatin 40 mg tablet 40 mg PO DAILY RF: 0 Discharge Orders: Discharge Order (Routine); Ordered 10/11/21 Ordered By: Bay Aguilar/Other Patient Handouts: Managing Type 2 Diabetes Admission Data Admit Date/Time: 10/05/21 11:41 Attending Provider: Bay Azul Admit Provider: Mic Cain Primary Care Provider: Sulma Pimentel Other Providers: Mic Cain ; Luz Maria Warren How Other Interventions: Discharge Summary Assessment (RN) Last Done: 10/11/21 14:47 Coding Level of Care Code D/C DAY MANAGEMENT >30 MINS Diagnoses Sialoadenitis of submandibular gland K11.20 Type 2 diabetes mellitus E11.9 Diabetes mellitus middle or intermediate school principal insulin use: without senior care use Asthma J45.909 Hyperlipidemia E78.5 Hypertension I10 Thyroid nodule E04.1 Diarrhea R19.7
== END 2021-10-11 15:44 | disposition home or self-care (01) | DRG 139 ==
LOC: ED 07:56 → SUATTDRO 11:41 → 3W 11:41 → 2E 22:07 → 3N 10-08 18:57